=== PATIENT | male | born 1985 | race Caucasian/White ===

== ENCOUNTER 2018-03-03 11:42 | Inpatient (IN) | payer MEDICAID ==
[~2018-03-03] VITALS: Ht 167.6 cm; Wt 127.0 kg
[2018-03-03] MEDS ORDERED: NO HOME MEDS (13:20)
[2018-03-03] MEDS ORDERED: piperacillin/tazo 3.375gm/50ml 50 ML IV ONE (14:05)
[2018-03-03] MEDS ORDERED: vancomycin/NS 1 GM ADD-VANTAGE 250 ML IV ONE (14:05)
[2018-03-03] MEDS ORDERED: normal saline 1000ML IV soln IV ONE (14:05)
[2018-03-03 14:31] LABS: BASOPHILS % (AUTO) 0.1 % (0-1); EOSINOPHILS # (AUTO) 0.1 X10'3 (0-0.9); EOSINOPHILS % (AUTO) 0.9 % (0-6); HEMATOCRIT 39.9 % (42.0-52.0); HEMOGLOBIN 13.9 g/dl (14.0-17.9); LYMPHOCYTES # (AUTO) 1.3 X10'3 (1.1-4.8); LYMPHOCYTES % (AUTO) 15.5 % (21-51); MEAN CORPUSCULAR HEMOGLOBIN 29.1 PG (27.0-31.0); MEAN CORPUSCULAR HGB CONC 34.8 % (33.0-36.5); MEAN CORPUSCULAR VOLUME 83.6 FL (78-98); MEAN PLATELET VOLUME 9.4 FL (7.4-10.4); MONOCYTES # (AUTO) 0.7 X10'3 (0-0.9); MONOCYTES % (AUTO) 8.3 % (2-12); NEUTROPHILS # (AUTO) 6.5 X10'3 (1.8-7.7); NEUTROPHILS % (AUTO) 75.2 % (42-75); PLATELET COUNT 296 X10'3 (140-440); RED BLOOD COUNT 4.77 X10'6 (4.70-6.10); RED CELL DISTRIBUTION WIDTH 12.1 % (11.5-14.5); WHITE BLOOD COUNT 8.6 X10'3 (4.5-11.0)
[2018-03-03 14:47] LABS: ALANINE AMINOTRANSFERASE 35 U/L (12-78); ALBUMIN 2.6 G/DL (3.4-5.0); ALBUMIN/GLOBULIN RATIO 0.5 (1.1-1.5); ALKALINE PHOSPHATASE 61 IU/L (46-116); ANION GAP 13 (8-16); ASPARTATE AMINO TRANSFERASE 23 U/L (10-37); BILIRUBIN,TOTAL 0.7 MG/DL (0.1-1.0); BLOOD UREA NITROGEN 11 MG/DL (7-18); BUN/CREATININE RATIO 11.7 (5.4-32.0); CALCIUM 9.4 MG/DL (8.5-10.1); CHLORIDE 98 MMOL/L (99-107); CREATININE 0.94 MG/DL (0.60-1.10); GLUCOSE 332 MG/DL (70-104); POTASSIUM 4.7 MMOL/L (3.5-5.1); SODIUM 135 MMOL/L (135-145); TOTAL CARBON DIOXIDE 23.8 MMOL/L (24-32); TOTAL PROTEIN 7.6 G/DL (6.4-8.2); eGFR > 90 ML/MIN
[2018-03-03 16:07] LABS: CLARITY,URINE CLOUDY (Clear); COLOR,URINE YELLOW (Yellow); GLUCOSE, URINE >=1000 mg/dl (Neg); KETONES,URINE >=80 mg/dl (Neg); LEUKOCYTE ESTERASE ,URINE NEGATIVE (Neg); NITRITES, URINE NEGATIVE (Neg); OCCULT BLOOD,URINE TRACE-LYSED (Neg); PROTEIN,URINE TRACE mg/dl (Neg)
[2018-03-03 16:31] LABS: UA COLLECTION TYPE CLN CATCH MIDSTREAM
[2018-03-03 16:32] LABS: WBC,URINE 30-50 /HPF (0-4)
[2018-03-03 16:33] LABS: BACTERIA,URINE 1+ /HPF (Neg); RBC,URINE 0-2 /HPF (0-2); SQUAMOUS EPITHELIAL CELL,UR FEW /LPF (FEW)
[2018-03-03] MEDS ORDERED: TETanus/Pertussis (Acell)/Diphther VAC/PF (Tdap-Adult) 0.5ml syringe IM ONE (16:35)
[2018-03-03] MEDS ORDERED: magnesium hydroxide 30ml (MOM) UD suspension PO PRN (16:40)
[2018-03-03] MEDS ORDERED: glucagon, human recombinant 1mg kit SUBCUT PRN (16:40)
[2018-03-03] MEDS ORDERED: mag hydrox/Alum hydrox/simeth 30ml oral suspension PO PRN (16:40)
[2018-03-03] MEDS ORDERED: HYDROcodone/acetaminophen 5mg/325mg tablet PO PRN (16:40)
[2018-03-03] MEDS ORDERED: MESSAGE TO PHARMACY PO ONE (16:40)
[2018-03-03] MEDS ORDERED: dextrose 50%-water 50ml dispensing syringe IV PRN ×2 (16:40)
[2018-03-03] MEDS ORDERED: HYDROcodone/acetaminophen 10/325mg tab PO PRN (16:40)
[2018-03-03] MEDS ORDERED: acetaminophen 325mg tablet PO PRN ×2 (16:40)
[2018-03-03] MEDS ORDERED: dextrose ORAL solution 15 GM/59 ML bottle PO PRN ×2 (16:40)
[2018-03-03] MEDS ORDERED: ondansetron/PF 4mg/2ml inj IV PRN (16:40)
[2018-03-03 17:12] LABS: HEMOGLOBIN A1C 10.9 % (4.5-6.2)
[2018-03-03] MEDS: CefTRIAXone 2gm/D5W 50ml 50 ML IV SCH (17:26)
[2018-03-03] MEDS: normal saline 1000ml 1,000 ML IV SCH ×2 (17:26→23:39)
[2018-03-03] MEDS ORDERED: vancomycin/NS 1 GM ADD-VANTAGE 250 ML IV SCH (20:00)
[2018-03-03] MEDS ORDERED: temazepam 15mg capsule PO PRN (21:00)
[2018-03-03 21:30] VITALS: BP 131/79
[2018-03-03] MEDS: insulin glargine (Lantus) pen - multi-dose SQ SCH (23:23)
[2018-03-03] MEDS: insulin Lispro (HumaLOG) vial - multi-dose SQ SCH (23:24)
[2018-03-04] VITALS: BP 121/73
[2018-03-04 05:58] LABS: BASOPHILS % (AUTO) 0 % (0-1); EOSINOPHILS # (AUTO) 0.1 X10'3 (0-0.9); EOSINOPHILS % (AUTO) 1.6 % (0-6); HEMATOCRIT 34.7 % (42.0-52.0); HEMOGLOBIN 12.1 g/dl (14.0-17.9); LYMPHOCYTES # (AUTO) 1.7 X10'3 (1.1-4.8); LYMPHOCYTES % (AUTO) 21.3 % (21-51); MEAN CORPUSCULAR HEMOGLOBIN 29.2 PG (27.0-31.0); MEAN CORPUSCULAR VOLUME 83.4 FL (78-98); MEAN PLATELET VOLUME 8.8 FL (7.4-10.4); MONOCYTES # (AUTO) 0.8 X10'3 (0-0.9); NEUTROPHILS # (AUTO) 5.4 X10'3 (1.8-7.7); NEUTROPHILS % (AUTO) 67.1 % (42-75); PLATELET COUNT 293 X10'3 (140-440); RED BLOOD COUNT 4.16 X10'6 (4.70-6.10); RED CELL DISTRIBUTION WIDTH 11.9 % (11.5-14.5); WHITE BLOOD COUNT 8.1 X10'3 (4.5-11.0)
[2018-03-04 06:29] LABS: ANION GAP 11 (8-16); BLOOD UREA NITROGEN 10 MG/DL (7-18); BUN/CREATININE RATIO 14.7 (5.4-32.0); CALCIUM 8.8 MG/DL (8.5-10.1); CHLORIDE 103 MMOL/L (99-107); CREATININE 0.68 MG/DL (0.60-1.10); GLUCOSE 278 MG/DL (70-104); POTASSIUM 4.1 MMOL/L (3.5-5.1); SODIUM 139 MMOL/L (135-145); TOTAL CARBON DIOXIDE 25.2 MMOL/L (24-32); eGFR > 90 ML/MIN
[2018-03-04] MEDS: enoxaparin 40mg/0.4ml syringe SQ SCH (06:43)
[2018-03-04 07:00] VITALS: BP 137/74
[2018-03-04] MEDS: CefTRIAXone 2gm/D5W 50ml 50 ML IV SCH (07:42)
[2018-03-04] MEDS ORDERED: [UNRECOGNIZED DRUG - OTHER] (08:29)
[2018-03-04] MEDS ORDERED: MULT-955 PO (08:30)
[2018-03-04] MEDS: insulin Lispro (HumaLOG) vial - multi-dose SQ SCH ×4 (09:03→22:38)
[2018-03-04] MEDS: normal saline 1000ml 1,000 ML IV SCH ×2 (11:21→22:38)
[2018-03-04 12:21] VITALS: BP 124/72
[2018-03-04] MEDS ORDERED: VANCOMYCIN LEVEL IV ONE (17:30)
[2018-03-04 19:00] VITALS: BP 135/80
[2018-03-04] MEDS: insulin glargine (Lantus) pen - multi-dose SQ SCH (22:36)
[2018-03-05] VITALS (18 sets, daily range): BP systolic 112–134; BP diastolic 64–88
[2018-03-05] MEDS ORDERED: VANCOMYCIN LEVEL IV ONE ×2 (01:30→09:30)
[2018-03-05 02:05] LABS: ALBUMIN 1.9 G/DL (3.4-5.0); ANION GAP 11 (8-16); BLOOD UREA NITROGEN 8 MG/DL (7-18); CALCIUM 8.5 MG/DL (8.5-10.1); CHLORIDE 103 MMOL/L (99-107); CREATININE 0.57 MG/DL (0.60-1.10); GLUCOSE 203 MG/DL (70-104); POTASSIUM 3.6 MMOL/L (3.5-5.1); SODIUM 138 MMOL/L (135-145); TOTAL CARBON DIOXIDE 24.4 MMOL/L (24-32); VANCOMYCIN,TROUGH 8.7 UG/ML (6.0-14.0); eGFR > 90 ML/MIN
[2018-03-05 02:09] LABS: BASOPHILS % (AUTO) 0.3 % (0-1); EOSINOPHILS # (AUTO) 0.2 X10'3 (0-0.9); EOSINOPHILS % (AUTO) 2.3 % (0-6); HEMATOCRIT 34.2 % (42.0-52.0); HEMOGLOBIN 11.9 g/dl (14.0-17.9); LYMPHOCYTES # (AUTO) 2.1 X10'3 (1.1-4.8); LYMPHOCYTES % (AUTO) 27.7 % (21-51); MEAN CORPUSCULAR HEMOGLOBIN 29.3 PG (27.0-31.0); MEAN CORPUSCULAR VOLUME 83.9 FL (78-98); MEAN PLATELET VOLUME 8.6 FL (7.4-10.4); MONOCYTES # (AUTO) 0.8 X10'3 (0-0.9); MONOCYTES % (AUTO) 9.7 % (2-12); NEUTROPHILS # (AUTO) 4.6 X10'3 (1.8-7.7); PLATELET COUNT 306 X10'3 (140-440); RED BLOOD COUNT 4.07 X10'6 (4.70-6.10); RED CELL DISTRIBUTION WIDTH 12.2 % (11.5-14.5); WHITE BLOOD COUNT 7.7 X10'3 (4.5-11.0)
[2018-03-05] MEDS: enoxaparin 40mg/0.4ml syringe SQ SCH (07:06)
[2018-03-05] MEDS: CefTRIAXone 2gm/D5W 50ml 50 ML IV SCH (07:23)
[2018-03-05] MEDS: normal saline 1000ml 1,000 ML IV SCH ×2 (07:23→17:41)
[2018-03-05] MEDS: insulin Lispro (HumaLOG) vial - multi-dose SQ SCH ×4 (08:40→22:15)
[2018-03-05 09:05] LABS: PARTIAL THROMBOPLASTIN TIME 31 SECONDS (22-32); PROTHROMBIN TIME 10.7 SECONDS (9.0-12.0)
[2018-03-05] MEDS: DEXTROSE 5% IV SCH ×2 (10:00→17:41)
[2018-03-05] MEDS: WATER IV SCH ×2 (10:00→17:41)
[2018-03-05] MEDS: VANCOMYCIN IV SCH ×2 (10:00→17:41)
[2018-03-05] MEDS ORDERED: BUPIVAcaine/PF 2.5 mg/ml (0.25%) 30ml vial ONE (14:11)
[2018-03-05] MEDS ORDERED: ringers solution, lacted 1,000 ML IV SCH (15:31)
[2018-03-05] MEDS ORDERED: ondansetron/PF 4mg/2ml inj IV PRN (15:35)
[2018-03-05] MEDS ORDERED: morphine 4 MG/ML inj SYRINge IV PRN ×2 (15:35)
[2018-03-05] MEDS ORDERED: meperidine/PF 50mg/ml syringe IV PRN ×3 (15:35)
[2018-03-05] MEDS ORDERED: proCHLORperazine 10 MG/2 ml inj IV PRN (15:35)
[2018-03-05] MEDS ORDERED: fentaNYL/PF 50MCG/1 ML 2ML syringe ONE (15:37)
[2018-03-05] MEDS ORDERED: midazolam 2 mg/2 ml injection ONE (15:37)
[2018-03-05] MEDS ORDERED: LIDOcaine 2% (20mg/ml) 5ml vial ONE (16:10)
[2018-03-05] MEDS ORDERED: propofol inj 20 ML IV ONE (16:10)
[2018-03-05] MEDS: fluconazole 100mg tablet PO SCH (20:41)
[2018-03-05] MEDS: insulin glargine (Lantus) pen - multi-dose SQ SCH (22:16)
[2018-03-06] VITALS: BP 137/81
[2018-03-06] MEDS: WATER IV SCH ×3 (02:07→19:28)
[2018-03-06] MEDS: VANCOMYCIN IV SCH ×3 (02:07→19:28)
[2018-03-06] MEDS: DEXTROSE 5% IV SCH ×3 (02:07→19:28)
[2018-03-06 04:00] VITALS: BP 127/79
[2018-03-06] MEDS: normal saline 1000ml 1,000 ML IV SCH ×2 (04:38→09:03)
[2018-03-06 06:01] LABS: BASOPHILS % (AUTO) 0.3 % (0-1); EOSINOPHILS # (AUTO) 0.1 X10'3 (0-0.9); EOSINOPHILS % (AUTO) 0.7 % (0-6); HEMATOCRIT 33.5 % (42.0-52.0); HEMOGLOBIN 11.7 g/dl (14.0-17.9); LYMPHOCYTES # (AUTO) 1.8 X10'3 (1.1-4.8); LYMPHOCYTES % (AUTO) 17.1 % (21-51); MEAN CORPUSCULAR HEMOGLOBIN 29.2 PG (27.0-31.0); MEAN CORPUSCULAR VOLUME 83.5 FL (78-98); MEAN PLATELET VOLUME 8.5 FL (7.4-10.4); MONOCYTES # (AUTO) 0.6 X10'3 (0-0.9); MONOCYTES % (AUTO) 6.1 % (2-12); NEUTROPHILS % (AUTO) 75.8 % (42-75); PLATELET COUNT 338 X10'3 (140-440); RED BLOOD COUNT 4.01 X10'6 (4.70-6.10); RED CELL DISTRIBUTION WIDTH 12.2 % (11.5-14.5); WHITE BLOOD COUNT 10.6 X10'3 (4.5-11.0)
[2018-03-06 06:38] LABS: ANION GAP 11 (8-16); BLOOD UREA NITROGEN 8 MG/DL (7-18); BUN/CREATININE RATIO 11.9 (5.4-32.0); CALCIUM 8.7 MG/DL (8.5-10.1); CHLORIDE 101 MMOL/L (99-107); CREATININE 0.67 MG/DL (0.60-1.10); GLUCOSE 287 MG/DL (70-104); SODIUM 136 MMOL/L (135-145); TOTAL CARBON DIOXIDE 23.7 MMOL/L (24-32); eGFR > 90 ML/MIN
[2018-03-06 07:13] VITALS: BP 118/65
[2018-03-06] MEDS: fluconazole 100mg tablet PO SCH ×2 (07:24→19:29)
[2018-03-06] MEDS: CefTRIAXone 2gm/D5W 50ml 50 ML IV SCH (07:24)
[2018-03-06] MEDS: enoxaparin 40mg/0.4ml syringe SQ SCH (07:25)
[2018-03-06] MEDS: insulin Lispro (HumaLOG) vial - multi-dose SQ SCH ×4 (09:03→21:32)
[2018-03-06 11:00] VITALS: BP 124/68
[2018-03-06] MEDS ORDERED: VANCOMYCIN LEVEL IV ONE (17:30)
[2018-03-06] MEDS: lactobacillus rhamnosus 10,000 MMU CELLS/CAPSULE PO SCH (19:29)
[2018-03-06 20:00] VITALS: BP 118/74
[2018-03-06] MEDS: insulin glargine (Lantus) pen - multi-dose SQ SCH (21:35)
[2018-03-07] VITALS: BP 120/65
[2018-03-07] MEDS: VANCOMYCIN IV SCH ×3 (01:17→19:07)
[2018-03-07] MEDS: DEXTROSE 5% IV SCH ×3 (01:17→19:07)
[2018-03-07] MEDS: WATER IV SCH ×3 (01:17→19:07)
[2018-03-07] MEDS: normal saline 1000ml 1,000 ML IV SCH ×3 (04:26→18:18)
[2018-03-07 05:59] LABS: BASOPHILS % (AUTO) 0.5 % (0-1); EOSINOPHILS # (AUTO) 0.2 X10'3 (0-0.9); EOSINOPHILS % (AUTO) 2.4 % (0-6); HEMATOCRIT 33.8 % (42.0-52.0); LYMPHOCYTES # (AUTO) 2.6 X10'3 (1.1-4.8); MEAN CORPUSCULAR HEMOGLOBIN 29.4 PG (27.0-31.0); MEAN CORPUSCULAR HGB CONC 35.4 % (33.0-36.5); MEAN CORPUSCULAR VOLUME 82.9 FL (78-98); MEAN PLATELET VOLUME 8.4 FL (7.4-10.4); MONOCYTES # (AUTO) 0.6 X10'3 (0-0.9); MONOCYTES % (AUTO) 6.7 % (2-12); NEUTROPHILS % (AUTO) 63.4 % (42-75); PLATELET COUNT 320 X10'3 (140-440); RED BLOOD COUNT 4.08 X10'6 (4.70-6.10); RED CELL DISTRIBUTION WIDTH 12.4 % (11.5-14.5); WHITE BLOOD COUNT 9.5 X10'3 (4.5-11.0)
[2018-03-07 06:16] LABS: ALBUMIN 1.9 G/DL (3.4-5.0); ANION GAP 7 (8-16); BLOOD UREA NITROGEN 8 MG/DL (7-18); BUN/CREATININE RATIO 10.8 (5.4-32.0); CALCIUM 8.4 MG/DL (8.5-10.1); CHLORIDE 104 MMOL/L (99-107); CREATININE 0.74 MG/DL (0.60-1.10); GLUCOSE 232 MG/DL (70-104); POTASSIUM 3.9 MMOL/L (3.5-5.1); SODIUM 140 MMOL/L (135-145); TOTAL CARBON DIOXIDE 28.7 MMOL/L (24-32); eGFR > 90 ML/MIN
[2018-03-07 07:29] VITALS: BP 132/84
[2018-03-07] MEDS: insulin Lispro (HumaLOG) vial - multi-dose SQ SCH ×4 (08:32→21:43)
[2018-03-07] MEDS: CefTRIAXone 2gm/D5W 50ml 50 ML IV SCH (08:33)
[2018-03-07] MEDS: fluconazole 100mg tablet PO SCH ×2 (08:35→19:15)
[2018-03-07] MEDS: lactobacillus rhamnosus 10,000 MMU CELLS/CAPSULE PO SCH ×2 (08:35→19:15)
[2018-03-07] MEDS: enoxaparin 40mg/0.4ml syringe SQ SCH (08:36)
[2018-03-07 11:00] VITALS: BP 146/75
[2018-03-07 20:00] VITALS: BP 128/77
[2018-03-07] MEDS: insulin glargine (Lantus) pen - multi-dose SQ SCH (21:42)
[2018-03-08] VITALS: BP 140/80
[2018-03-08] MEDS: WATER IV SCH (01:45)
[2018-03-08] MEDS: VANCOMYCIN IV SCH (01:45)
[2018-03-08] MEDS: DEXTROSE 5% IV SCH (01:45)
[2018-03-08 06:16] LABS: BASOPHILS % (AUTO) 0.6 % (0-1); EOSINOPHILS # (AUTO) 0.2 X10'3 (0-0.9); EOSINOPHILS % (AUTO) 2.4 % (0-6); HEMATOCRIT 33.9 % (42.0-52.0); HEMOGLOBIN 11.8 g/dl (14.0-17.9); LYMPHOCYTES # (AUTO) 2.3 X10'3 (1.1-4.8); LYMPHOCYTES % (AUTO) 25.3 % (21-51); MEAN CORPUSCULAR HEMOGLOBIN 29.3 PG (27.0-31.0); MEAN CORPUSCULAR HGB CONC 34.8 % (33.0-36.5); MEAN CORPUSCULAR VOLUME 84.3 FL (78-98); MEAN PLATELET VOLUME 8.6 FL (7.4-10.4); MONOCYTES # (AUTO) 0.6 X10'3 (0-0.9); MONOCYTES % (AUTO) 6.5 % (2-12); NEUTROPHILS # (AUTO) 5.8 X10'3 (1.8-7.7); NEUTROPHILS % (AUTO) 65.2 % (42-75); PLATELET COUNT 311 X10'3 (140-440); RED BLOOD COUNT 4.02 X10'6 (4.70-6.10); WHITE BLOOD COUNT 8.9 X10'3 (4.5-11.0)
[2018-03-08 06:36] LABS: ALBUMIN 1.8 G/DL (3.4-5.0); ANION GAP 9 (8-16); BLOOD UREA NITROGEN 8 MG/DL (7-18); BUN/CREATININE RATIO 11.4 (5.4-32.0); CALCIUM 8.7 MG/DL (8.5-10.1); CHLORIDE 103 MMOL/L (99-107); GLUCOSE 263 MG/DL (70-104); POTASSIUM 3.9 MMOL/L (3.5-5.1); SODIUM 138 MMOL/L (135-145); TOTAL CARBON DIOXIDE 26.3 MMOL/L (24-32); eGFR > 90 ML/MIN
[2018-03-08] MEDS: normal saline 1000ml 1,000 ML IV SCH ×2 (07:26→16:38)
[2018-03-08] MEDS: CefTRIAXone 2gm/D5W 50ml 50 ML IV SCH (07:26)
[2018-03-08] MEDS: lactobacillus rhamnosus 10,000 MMU CELLS/CAPSULE PO SCH ×2 (07:27→19:04)
[2018-03-08] MEDS: fluconazole 100mg tablet PO SCH ×2 (07:27→19:04)
[2018-03-08] MEDS: enoxaparin 40mg/0.4ml syringe SQ SCH (07:28)
[2018-03-08 08:00] VITALS: BP 146/88
[2018-03-08] MEDS: insulin Lispro (HumaLOG) vial - multi-dose SQ SCH ×3 (09:13→19:00)
[2018-03-08 11:00] VITALS: BP 128/68
[2018-03-08] MEDS: vancomycin inj 2,000 MG in normal saline 500ml IV soln 500 ML IV SCH ×2 (11:26→18:54)
[2018-03-08 20:00] VITALS: BP 136/82
[2018-03-08] MEDS: insulin glargine (Lantus) pen - multi-dose SQ SCH (20:48)
[2018-03-09] VITALS: BP 129/75
[2018-03-09] MEDS: vancomycin inj 2,000 MG in normal saline 500ml IV soln 500 ML IV SCH ×4 (02:03→19:54)
[2018-03-09 07:30] VITALS: BP 134/85
[2018-03-09] MEDS: lactobacillus rhamnosus 10,000 MMU CELLS/CAPSULE PO SCH ×2 (07:34→19:53)
[2018-03-09] MEDS: enoxaparin 40mg/0.4ml syringe SQ SCH (07:34)
[2018-03-09] MEDS: CefTRIAXone 2gm/D5W 50ml 50 ML IV SCH (07:34)
[2018-03-09] MEDS: fluconazole 100mg tablet PO SCH ×2 (07:35→19:53)
[2018-03-09] MEDS: insulin Lispro (HumaLOG) vial - multi-dose SQ SCH ×3 (08:42→19:45)
[2018-03-09 12:00] VITALS: BP 138/86
[2018-03-09 20:00] VITALS: BP 121/79
[2018-03-09] MEDS: insulin glargine (Lantus) pen - multi-dose SQ SCH (22:08)
[2018-03-09 23:00] VITALS: BP 127/80
[2018-03-10] MEDS: vancomycin inj 2,000 MG in normal saline 500ml IV soln 500 ML IV SCH ×2 (02:45→10:48)
[2018-03-10 06:31] LABS: ANION GAP 8 (8-16); BLOOD UREA NITROGEN 8 MG/DL (7-18); BUN/CREATININE RATIO 10.7 (5.4-32.0); CALCIUM 8.5 MG/DL (8.5-10.1); CHLORIDE 105 MMOL/L (99-107); CREATININE 0.75 MG/DL (0.60-1.10); GLUCOSE 159 MG/DL (70-104); POTASSIUM 3.8 MMOL/L (3.5-5.1); SODIUM 141 MMOL/L (135-145); TOTAL CARBON DIOXIDE 28.2 MMOL/L (24-32); eGFR > 90 ML/MIN
[2018-03-10 07:30] VITALS: BP 132/92
[2018-03-10] MEDS: lactobacillus rhamnosus 10,000 MMU CELLS/CAPSULE PO SCH ×2 (07:41→20:17)
[2018-03-10] MEDS: enoxaparin 40mg/0.4ml syringe SQ SCH (07:41)
[2018-03-10] MEDS: fluconazole 100mg tablet PO SCH ×2 (07:41→20:17)
[2018-03-10] MEDS: CefTRIAXone 2gm/D5W 50ml 50 ML IV SCH (07:41)
[2018-03-10] MEDS: insulin Lispro (HumaLOG) vial - multi-dose SQ SCH ×3 (08:29→18:56)
[2018-03-10 11:40] VITALS: BP 124/83
[2018-03-10] MEDS: levoFLOXACIN 750MG TABLET PO SCH (12:57)
[2018-03-10] MEDS: metroNIDAZOLE 500mg tablet PO SCH ×2 (12:58→20:17)
[2018-03-10 18:00] VITALS: BP 134/84
[2018-03-10] MEDS: insulin glargine (Lantus) pen - multi-dose SQ SCH (21:22)
[2018-03-10 23:30] VITALS: BP 120/61
[2018-03-11 07:00] VITALS: BP 134/84
[2018-03-11] MEDS: fluconazole 100mg tablet PO SCH (08:26)
[2018-03-11] MEDS: metroNIDAZOLE 500mg tablet PO SCH (08:26)
[2018-03-11] MEDS: enoxaparin 40mg/0.4ml syringe SQ SCH (08:26)
[2018-03-11] MEDS: lactobacillus rhamnosus 10,000 MMU CELLS/CAPSULE PO SCH (08:26)
[2018-03-11] MEDS: insulin Lispro (HumaLOG) vial - multi-dose SQ SCH ×2 (08:34→12:51)
[2018-03-11 11:19] VITALS: BP 139/94
[2018-03-11] MEDS: levoFLOXACIN 750MG TABLET PO SCH (12:01)
[2018-03-11] MEDS ORDERED: LANTUS SQ (14:34)
[2018-03-11] MEDS ORDERED: FLUC100T9 PO (14:34)
[2018-03-11] MEDS ORDERED: LEVO750T46 PO (14:34)
[2018-03-11] MEDS ORDERED: METR500T4 PO (14:34)
[2018-03-11] MEDS ORDERED: LACT1CAP26 PO (14:34)
[2018-03-11] MEDS ORDERED: INSU100V11 SQ (14:34)
[2018-03-11] MEDS ORDERED: BLOO-384 METER (14:34)
== END 2018-03-11 17:34 | disposition home health service (06) | DRG 314 ==
LOC: ER 11:43 → ED HOLD 16:38 → EDBEDREQ 20:54 → MED 3N 21:20 → CMPBEDREQ 22:09
PROVIDERS: ADMIT Hospitalist; ATTEND Family Medicine
PROC: 0Y6P0Z0 Detachment at Right 1st Toe, Complete, Open Approach (ICD-10-PCS; principal; 2018-03-05 15:30)
DX: E11.69 Type 2 diabetes mellitus with other specified complication (principal); M86.171 Other acute osteomyelitis, right ankle and foot; L03.115 Cellulitis of right lower limb; E11.52 Type 2 diabetes mellitus with diabetic peripheral angiopathy with gangrene; E11.65 Type 2 diabetes mellitus with hyperglycemia; Z68.42 Body mass index [BMI] 45.0-49.9, adult; B37.49 Other urogenital candidiasis; E66.9 Obesity, unspecified; L02.611 Cutaneous abscess of right foot; Z79.4 Long term (current) use of insulin; Z79.82 Long term (current) use of aspirin; Z83.3 Family history of diabetes mellitus; Z88.8 Allergy status to other drugs, medicaments and biological substances
CPT/HCPCS: 36415; 73620; 80048; 80053; 80202; 81001; 82948; 83036; 83605; 85025; 85610; 85651; 85730; 87040; 87070; 87075; 87076; 87077; 87088; 87185; 87186; 90715; 93005; 93922; 93926; 96365; 97110; 97116; 97162; 97530; 99285; A6223; A6446; A6449; A7000; J0696; J1650; J1815; J2001; J2250; J2543; J2704; J3010; J3370; J3490; J7030; J7060; J7120

== ENCOUNTER 2018-03-24 09:44 | Day surgery (SDC) | payer MEDICAID ==
[~2018-03-24 09:44] MED LIST: BLOO-384 METER; FLUC100T9 PO; INSU100V11 SQ; LACT1CAP26 PO; LANTUS SQ; LEVO750T46 PO; METR500T4 PO; MULT-955 PO
[2018-03-24] MEDS ORDERED: LIDOcaine 2% 5ml jelly ONE (10:30)
== END 2018-03-24 12:32 | disposition home or self-care (01) ==
LOC: WOUND CARE 09:44
PROVIDERS: ATTEND Surgery
DX: T81.89XA Other complications of procedures, not elsewhere classified, initial encounter (principal); E11.621 Type 2 diabetes mellitus with foot ulcer; L97.514 Non-pressure chronic ulcer of other part of right foot with necrosis of bone; L97.522 Non-pressure chronic ulcer of other part of left foot with fat layer exposed; E11.65 Type 2 diabetes mellitus with hyperglycemia; E11.40 Type 2 diabetes mellitus with diabetic neuropathy, unspecified; E11.69 Type 2 diabetes mellitus with other specified complication; M86.8X7 Other osteomyelitis, ankle and foot; E11.52 Type 2 diabetes mellitus with diabetic peripheral angiopathy with gangrene; E66.9 Obesity, unspecified; Z68.42 Body mass index [BMI] 45.0-49.9, adult; Z79.82 Long term (current) use of aspirin; Z79.4 Long term (current) use of insulin; Y83.8 Other surgical procedures as the cause of abnormal reaction of the patient, or of later complication, without mention of misadventure at the time of the procedure
CPT/HCPCS: 11042; 36416; 82948; A6021; A6206; A6209; A6446

== ENCOUNTER 2018-03-31 08:57 | Day surgery (SDC) | payer MEDICAID ==
[~2018-03-31 08:57] MED LIST changes: -FLUC100T9 PO; -LACT1CAP26 PO; -LEVO750T46 PO; -METR500T4 PO
[2018-03-31] MEDS ORDERED: LIDOcaine 2% 5ml jelly ONE (11:13)
== END 2018-03-31 12:02 | disposition home or self-care (01) ==
LOC: WOUND CARE 08:57
PROVIDERS: ATTEND Surgery
DX: T81.89XD Other complications of procedures, not elsewhere classified, subsequent encounter (principal); E11.621 Type 2 diabetes mellitus with foot ulcer; L97.514 Non-pressure chronic ulcer of other part of right foot with necrosis of bone; L97.522 Non-pressure chronic ulcer of other part of left foot with fat layer exposed; E11.65 Type 2 diabetes mellitus with hyperglycemia; E11.40 Type 2 diabetes mellitus with diabetic neuropathy, unspecified; E11.69 Type 2 diabetes mellitus with other specified complication; M86.8X7 Other osteomyelitis, ankle and foot; E11.52 Type 2 diabetes mellitus with diabetic peripheral angiopathy with gangrene; E66.9 Obesity, unspecified; Z68.42 Body mass index [BMI] 45.0-49.9, adult; Z79.82 Long term (current) use of aspirin; Z79.4 Long term (current) use of insulin; Y83.8 Other surgical procedures as the cause of abnormal reaction of the patient, or of later complication, without mention of misadventure at the time of the procedure
CPT/HCPCS: 11042; 36416; 82948; A6021; A6206; A6209; A6446

== ENCOUNTER 2018-04-07 10:00 | Day surgery (SDC) | payer MEDICAID ==
[2018-04-07] MEDS ORDERED: LIDOcaine 2% 5ml jelly ONE (11:22)
== END 2018-04-07 12:41 | disposition home or self-care (01) ==
LOC: WOUND CARE 10:00
PROVIDERS: ATTEND Surgery
DX: T81.89XD Other complications of procedures, not elsewhere classified, subsequent encounter (principal); E11.621 Type 2 diabetes mellitus with foot ulcer; L97.514 Non-pressure chronic ulcer of other part of right foot with necrosis of bone; L97.522 Non-pressure chronic ulcer of other part of left foot with fat layer exposed; E11.65 Type 2 diabetes mellitus with hyperglycemia; E11.40 Type 2 diabetes mellitus with diabetic neuropathy, unspecified; E11.69 Type 2 diabetes mellitus with other specified complication; M86.8X7 Other osteomyelitis, ankle and foot; E11.52 Type 2 diabetes mellitus with diabetic peripheral angiopathy with gangrene; E66.9 Obesity, unspecified; Z68.42 Body mass index [BMI] 45.0-49.9, adult; Z79.82 Long term (current) use of aspirin; Z79.4 Long term (current) use of insulin; Y83.8 Other surgical procedures as the cause of abnormal reaction of the patient, or of later complication, without mention of misadventure at the time of the procedure
CPT/HCPCS: 11042; 36416; 82948; A6021; A6206; A6209; A6266; A6446

== ENCOUNTER 2018-04-10 09:57 | Outpatient (CLI) | payer MEDICAID | END 2018-04-10 10:58 | disposition home or self-care (01) | LOC: WOUND CARE 09:57 → EDSTATUS 10:00 → WOUND CARE 10:58 | PROVIDERS: ATTEND Surgery | DX: T81.89XD Other complications of procedures, not elsewhere classified, subsequent encounter (principal); E11.621 Type 2 diabetes mellitus with foot ulcer; L97.514 Non-pressure chronic ulcer of other part of right foot with necrosis of bone; L97.522 Non-pressure chronic ulcer of other part of left foot with fat layer exposed; E11.65 Type 2 diabetes mellitus with hyperglycemia; E11.40 Type 2 diabetes mellitus with diabetic neuropathy, unspecified; E11.69 Type 2 diabetes mellitus with other specified complication; M86.8X7 Other osteomyelitis, ankle and foot; E11.52 Type 2 diabetes mellitus with diabetic peripheral angiopathy with gangrene; E66.9 Obesity, unspecified; Z68.42 Body mass index [BMI] 45.0-49.9, adult; Z79.82 Long term (current) use of aspirin; Z79.4 Long term (current) use of insulin; Y83.8 Other surgical procedures as the cause of abnormal reaction of the patient, or of later complication, without mention of misadventure at the time of the procedure | CPT/HCPCS: 36416; 82948; 99215; A6021; A6206; A6266; A6446 ==

== ENCOUNTER 2018-04-14 09:39 | Day surgery (SDC) | payer MEDICAID ==
[2018-04-14] MEDS ORDERED: LIDOcaine 2% 5ml jelly ONE (10:19)
== END 2018-04-14 11:12 | disposition home or self-care (01) ==
LOC: WOUND CARE 09:39
PROVIDERS: ATTEND Surgery
DX: T81.89XD Other complications of procedures, not elsewhere classified, subsequent encounter (principal); E11.621 Type 2 diabetes mellitus with foot ulcer; L97.514 Non-pressure chronic ulcer of other part of right foot with necrosis of bone; L97.522 Non-pressure chronic ulcer of other part of left foot with fat layer exposed; E11.65 Type 2 diabetes mellitus with hyperglycemia; E11.40 Type 2 diabetes mellitus with diabetic neuropathy, unspecified; E11.69 Type 2 diabetes mellitus with other specified complication; M86.8X7 Other osteomyelitis, ankle and foot; E11.52 Type 2 diabetes mellitus with diabetic peripheral angiopathy with gangrene; I96 Gangrene, not elsewhere classified; E66.9 Obesity, unspecified; Z68.42 Body mass index [BMI] 45.0-49.9, adult; Z79.82 Long term (current) use of aspirin; Z79.4 Long term (current) use of insulin; Y83.8 Other surgical procedures as the cause of abnormal reaction of the patient, or of later complication, without mention of misadventure at the time of the procedure
CPT/HCPCS: 11042; 36416; 82948; A6021; A6206

== ENCOUNTER 2018-04-24 09:51 | Day surgery (SDC) | payer MEDICAID ==
[2018-04-24] MEDS ORDERED: LIDOcaine 2% 5ml jelly ONE (10:09)
== END 2018-04-24 11:34 | disposition home or self-care (01) ==
LOC: WOUND CARE 09:51
PROVIDERS: ATTEND Surgery
DX: T81.89XD Other complications of procedures, not elsewhere classified, subsequent encounter (principal); E11.621 Type 2 diabetes mellitus with foot ulcer; L97.514 Non-pressure chronic ulcer of other part of right foot with necrosis of bone; L97.522 Non-pressure chronic ulcer of other part of left foot with fat layer exposed; E11.65 Type 2 diabetes mellitus with hyperglycemia; E11.40 Type 2 diabetes mellitus with diabetic neuropathy, unspecified; E11.69 Type 2 diabetes mellitus with other specified complication; M86.8X7 Other osteomyelitis, ankle and foot; E11.52 Type 2 diabetes mellitus with diabetic peripheral angiopathy with gangrene; I96 Gangrene, not elsewhere classified; E66.9 Obesity, unspecified; Z68.42 Body mass index [BMI] 45.0-49.9, adult; Z79.82 Long term (current) use of aspirin; Z79.4 Long term (current) use of insulin; Y83.8 Other surgical procedures as the cause of abnormal reaction of the patient, or of later complication, without mention of misadventure at the time of the procedure
CPT/HCPCS: 11042; 36416; 82948; 87070; 87075; 87077; 87102; 87176; 87186; A6021; A6206

== ENCOUNTER 2018-05-01 09:15 | Day surgery (SDC) | payer MEDICAID ==
[2018-05-01] MEDS ORDERED: LIDOcaine 2% 5ml jelly ONE (10:46)
== END 2018-05-01 11:45 | disposition home or self-care (01) ==
LOC: WOUND CARE 09:15
PROVIDERS: ATTEND Surgery
DX: T81.89XD Other complications of procedures, not elsewhere classified, subsequent encounter (principal); E11.621 Type 2 diabetes mellitus with foot ulcer; L97.514 Non-pressure chronic ulcer of other part of right foot with necrosis of bone; L97.522 Non-pressure chronic ulcer of other part of left foot with fat layer exposed; E11.65 Type 2 diabetes mellitus with hyperglycemia; E11.40 Type 2 diabetes mellitus with diabetic neuropathy, unspecified; E11.69 Type 2 diabetes mellitus with other specified complication; M86.8X7 Other osteomyelitis, ankle and foot; E11.52 Type 2 diabetes mellitus with diabetic peripheral angiopathy with gangrene; I96 Gangrene, not elsewhere classified; E66.9 Obesity, unspecified; Z68.42 Body mass index [BMI] 45.0-49.9, adult; Z79.82 Long term (current) use of aspirin; Z79.4 Long term (current) use of insulin; Y83.8 Other surgical procedures as the cause of abnormal reaction of the patient, or of later complication, without mention of misadventure at the time of the procedure
CPT/HCPCS: 11042; 15275; 36416; 82948; A6021; A6209; A6222; A6446; Q4131; A6250

== ENCOUNTER 2018-05-09 09:13 | Day surgery (SDC) | payer MEDICAID ==
[2018-05-09] MEDS ORDERED: LIDOcaine 2% 5ml jelly ONE (10:39)
[2018-05-09] MEDS ORDERED: LEVO500T2 PO (12:00)
[2018-05-09] MEDS ORDERED: CLIN300C13 (12:02)
== END 2018-05-09 11:42 | disposition home or self-care (01) ==
LOC: WOUND CARE 09:13
PROVIDERS: ATTEND Surgery
DX: T81.89XD Other complications of procedures, not elsewhere classified, subsequent encounter (principal); E11.621 Type 2 diabetes mellitus with foot ulcer; L97.514 Non-pressure chronic ulcer of other part of right foot with necrosis of bone; L97.522 Non-pressure chronic ulcer of other part of left foot with fat layer exposed; E11.65 Type 2 diabetes mellitus with hyperglycemia; E11.40 Type 2 diabetes mellitus with diabetic neuropathy, unspecified; E11.69 Type 2 diabetes mellitus with other specified complication; M86.8X7 Other osteomyelitis, ankle and foot; E11.52 Type 2 diabetes mellitus with diabetic peripheral angiopathy with gangrene; I96 Gangrene, not elsewhere classified; E66.9 Obesity, unspecified; Z68.42 Body mass index [BMI] 45.0-49.9, adult; Z79.82 Long term (current) use of aspirin; Z79.4 Long term (current) use of insulin; Y83.8 Other surgical procedures as the cause of abnormal reaction of the patient, or of later complication, without mention of misadventure at the time of the procedure
CPT/HCPCS: 11042; 36416; 82948; A6021; A6206; A6446

== ENCOUNTER 2018-05-15 09:54 | Day surgery (SDC) | payer MEDICAID ==
[~2018-05-15 09:54] MED LIST changes: +CLIN300C13; +LEVO500T2 PO
[2018-05-15] MEDS ORDERED: LIDOcaine 2% 5ml jelly ONE (10:58)
[2018-05-15] MEDS ORDERED: mupirocin 2% ointment 22GM ONE (11:22)
[2018-05-15] MEDS ORDERED: CLIN300C85 PO (15:55)
== END 2018-05-15 11:34 | disposition home or self-care (01) ==
LOC: WOUND CARE 09:54
PROVIDERS: ATTEND Surgery
DX: T81.89XD Other complications of procedures, not elsewhere classified, subsequent encounter (principal); E11.621 Type 2 diabetes mellitus with foot ulcer; L97.514 Non-pressure chronic ulcer of other part of right foot with necrosis of bone; L97.522 Non-pressure chronic ulcer of other part of left foot with fat layer exposed; E11.65 Type 2 diabetes mellitus with hyperglycemia; E11.40 Type 2 diabetes mellitus with diabetic neuropathy, unspecified; E11.69 Type 2 diabetes mellitus with other specified complication; M86.8X7 Other osteomyelitis, ankle and foot; E11.52 Type 2 diabetes mellitus with diabetic peripheral angiopathy with gangrene; I96 Gangrene, not elsewhere classified; E66.9 Obesity, unspecified; Z68.42 Body mass index [BMI] 45.0-49.9, adult; Z79.82 Long term (current) use of aspirin; Z79.4 Long term (current) use of insulin; Y83.8 Other surgical procedures as the cause of abnormal reaction of the patient, or of later complication, without mention of misadventure at the time of the procedure
CPT/HCPCS: 11042; 36416; 82948; A6021; A6206; A6212

== ENCOUNTER 2018-05-22 09:47 | Day surgery (SDC) | payer MEDICAID ==
[~2018-05-22 09:47] MED LIST changes: +CLIN300C85 PO
[2018-05-22] MEDS ORDERED: LIDOcaine 2% 5ml jelly ONE (10:10)
== END 2018-05-22 12:10 | disposition home or self-care (01) ==
LOC: WOUND CARE 09:47
PROVIDERS: ATTEND Surgery
DX: T81.89XD Other complications of procedures, not elsewhere classified, subsequent encounter (principal); E11.621 Type 2 diabetes mellitus with foot ulcer; L97.514 Non-pressure chronic ulcer of other part of right foot with necrosis of bone; L97.522 Non-pressure chronic ulcer of other part of left foot with fat layer exposed; E11.65 Type 2 diabetes mellitus with hyperglycemia; E11.40 Type 2 diabetes mellitus with diabetic neuropathy, unspecified; E11.69 Type 2 diabetes mellitus with other specified complication; M86.8X7 Other osteomyelitis, ankle and foot; E11.52 Type 2 diabetes mellitus with diabetic peripheral angiopathy with gangrene; I96 Gangrene, not elsewhere classified; Z68.42 Body mass index [BMI] 45.0-49.9, adult; Z79.82 Long term (current) use of aspirin; Z79.4 Long term (current) use of insulin; Y83.8 Other surgical procedures as the cause of abnormal reaction of the patient, or of later complication, without mention of misadventure at the time of the procedure
CPT/HCPCS: 11042; 36416; 82948; A6206; A6209

== ENCOUNTER 2018-05-27 10:01 | Day surgery (SDC) | payer MEDICAID ==
[2018-05-27] MEDS ORDERED: LIDOcaine 2% 5ml jelly ONE (11:43)
== END 2018-05-27 12:14 | disposition home or self-care (01) ==
LOC: WOUND CARE 10:01
PROVIDERS: ATTEND Surgery
DX: E11.621 Type 2 diabetes mellitus with foot ulcer (principal); L97.522 Non-pressure chronic ulcer of other part of left foot with fat layer exposed; E11.65 Type 2 diabetes mellitus with hyperglycemia; E11.40 Type 2 diabetes mellitus with diabetic neuropathy, unspecified; E11.69 Type 2 diabetes mellitus with other specified complication; M86.8X7 Other osteomyelitis, ankle and foot; E11.52 Type 2 diabetes mellitus with diabetic peripheral angiopathy with gangrene; I96 Gangrene, not elsewhere classified; Z68.42 Body mass index [BMI] 45.0-49.9, adult; Z79.82 Long term (current) use of aspirin; Z79.4 Long term (current) use of insulin; Y83.8 Other surgical procedures as the cause of abnormal reaction of the patient, or of later complication, without mention of misadventure at the time of the procedure
CPT/HCPCS: 11042; 36416; 82948; A6021; A6206; A6209

== ENCOUNTER 2018-06-04 09:45 | Day surgery (SDC) | payer MEDICAID ==
[~2018-06-04 09:45] MED LIST changes: -CLIN300C13; -LEVO500T2 PO
[2018-06-04] MEDS ORDERED: LIDOcaine 2% 5ml jelly ONE (10:56)
[2018-06-04] MEDS ORDERED: Silvasorb gel 45gm tube TP ONE (11:05)
== END 2018-06-04 10:57 | disposition home or self-care (01) ==
LOC: WOUND CARE 09:45
PROVIDERS: ATTEND Surgery
DX: T81.89XD Other complications of procedures, not elsewhere classified, subsequent encounter (principal); E11.621 Type 2 diabetes mellitus with foot ulcer; L97.522 Non-pressure chronic ulcer of other part of left foot with fat layer exposed; L97.512 Non-pressure chronic ulcer of other part of right foot with fat layer exposed; E11.65 Type 2 diabetes mellitus with hyperglycemia; E11.40 Type 2 diabetes mellitus with diabetic neuropathy, unspecified; E11.69 Type 2 diabetes mellitus with other specified complication; M86.8X7 Other osteomyelitis, ankle and foot; E11.52 Type 2 diabetes mellitus with diabetic peripheral angiopathy with gangrene; I96 Gangrene, not elsewhere classified; Z68.42 Body mass index [BMI] 45.0-49.9, adult; Z79.82 Long term (current) use of aspirin; Z79.4 Long term (current) use of insulin; Y83.8 Other surgical procedures as the cause of abnormal reaction of the patient, or of later complication, without mention of misadventure at the time of the procedure
CPT/HCPCS: 11042; 36416; 82948; 97597; A6021; A6209; A6212

== ENCOUNTER 2018-06-11 09:56 | Day surgery (SDC) | payer MEDICAID ==
[~2018-06-11 09:56] MED LIST changes: -CLIN300C85 PO
== END 2018-06-11 11:44 | disposition home or self-care (01) ==
LOC: WOUND CARE 09:56
PROVIDERS: ATTEND Surgery
DX: T81.89XD Other complications of procedures, not elsewhere classified, subsequent encounter (principal); E11.621 Type 2 diabetes mellitus with foot ulcer; L97.522 Non-pressure chronic ulcer of other part of left foot with fat layer exposed; L97.512 Non-pressure chronic ulcer of other part of right foot with fat layer exposed; E11.65 Type 2 diabetes mellitus with hyperglycemia; E11.40 Type 2 diabetes mellitus with diabetic neuropathy, unspecified; E11.69 Type 2 diabetes mellitus with other specified complication; M86.8X7 Other osteomyelitis, ankle and foot; E11.52 Type 2 diabetes mellitus with diabetic peripheral angiopathy with gangrene; I96 Gangrene, not elsewhere classified; Z68.42 Body mass index [BMI] 45.0-49.9, adult; Z79.82 Long term (current) use of aspirin; Z79.4 Long term (current) use of insulin; Y83.8 Other surgical procedures as the cause of abnormal reaction of the patient, or of later complication, without mention of misadventure at the time of the procedure
CPT/HCPCS: 11042; 36416; 82948; A6021; A6206; A6209

== ENCOUNTER 2018-06-18 09:53 | Day surgery (SDC) | payer MEDICAID | END 2018-06-18 12:00 | disposition home or self-care (01) | LOC: WOUND CARE 09:53 | PROVIDERS: ATTEND Surgery | DX: T81.89XD Other complications of procedures, not elsewhere classified, subsequent encounter (principal); E11.621 Type 2 diabetes mellitus with foot ulcer; L97.522 Non-pressure chronic ulcer of other part of left foot with fat layer exposed; L97.512 Non-pressure chronic ulcer of other part of right foot with fat layer exposed; E11.65 Type 2 diabetes mellitus with hyperglycemia; E11.40 Type 2 diabetes mellitus with diabetic neuropathy, unspecified; E11.69 Type 2 diabetes mellitus with other specified complication; M86.8X7 Other osteomyelitis, ankle and foot; E11.52 Type 2 diabetes mellitus with diabetic peripheral angiopathy with gangrene; I96 Gangrene, not elsewhere classified; Z68.42 Body mass index [BMI] 45.0-49.9, adult; Z79.82 Long term (current) use of aspirin; Z79.4 Long term (current) use of insulin; Y83.8 Other surgical procedures as the cause of abnormal reaction of the patient, or of later complication, without mention of misadventure at the time of the procedure | CPT/HCPCS: 36416; 82948; 97597; A6021; A6206; A6209 ==

== ENCOUNTER 2018-06-25 09:57 | Day surgery (SDC) | payer MEDICAID | END 2018-06-25 12:10 | disposition home or self-care (01) | LOC: WOUND CARE 09:57 | PROVIDERS: ATTEND Surgery | DX: T81.89XD Other complications of procedures, not elsewhere classified, subsequent encounter (principal); E11.621 Type 2 diabetes mellitus with foot ulcer; L97.522 Non-pressure chronic ulcer of other part of left foot with fat layer exposed; L97.512 Non-pressure chronic ulcer of other part of right foot with fat layer exposed; E11.65 Type 2 diabetes mellitus with hyperglycemia; E11.40 Type 2 diabetes mellitus with diabetic neuropathy, unspecified; E11.69 Type 2 diabetes mellitus with other specified complication; M86.8X7 Other osteomyelitis, ankle and foot; E11.52 Type 2 diabetes mellitus with diabetic peripheral angiopathy with gangrene; I96 Gangrene, not elsewhere classified; Z68.42 Body mass index [BMI] 45.0-49.9, adult; Z79.82 Long term (current) use of aspirin; Z79.4 Long term (current) use of insulin; Y83.8 Other surgical procedures as the cause of abnormal reaction of the patient, or of later complication, without mention of misadventure at the time of the procedure | CPT/HCPCS: 15275; 36416; 82948; A6209; A6446; Q4131; A6250 ==

== ENCOUNTER 2018-07-02 09:58 | Day surgery (SDC) | payer MEDICAID ==
[2018-07-02] MEDS: LIDOcaine 2% 5ml jelly ONE (11:28)
== END 2018-07-02 11:56 | disposition home or self-care (01) ==
LOC: WOUND CARE 09:58
PROVIDERS: ATTEND Surgery
DX: T81.89XD Other complications of procedures, not elsewhere classified, subsequent encounter (principal); E11.621 Type 2 diabetes mellitus with foot ulcer; L97.522 Non-pressure chronic ulcer of other part of left foot with fat layer exposed; L97.512 Non-pressure chronic ulcer of other part of right foot with fat layer exposed; E11.65 Type 2 diabetes mellitus with hyperglycemia; E11.40 Type 2 diabetes mellitus with diabetic neuropathy, unspecified; E11.69 Type 2 diabetes mellitus with other specified complication; M86.8X7 Other osteomyelitis, ankle and foot; E11.52 Type 2 diabetes mellitus with diabetic peripheral angiopathy with gangrene; I96 Gangrene, not elsewhere classified; Z68.42 Body mass index [BMI] 45.0-49.9, adult; Z79.82 Long term (current) use of aspirin; Z79.4 Long term (current) use of insulin; Y83.8 Other surgical procedures as the cause of abnormal reaction of the patient, or of later complication, without mention of misadventure at the time of the procedure
CPT/HCPCS: 36416; 82948; 97597; A6021; A6206; A6209

== ENCOUNTER 2018-07-10 09:55 | Day surgery (SDC) | payer MEDICAID ==
[2018-07-10] MEDS ORDERED: LIDOcaine 2% 5ml jelly ONE (11:45)
[2018-07-21] MEDS ORDERED: ST.300CA PO (15:45)
[2018-07-26] MEDS ORDERED: CIPR-230 PO (10:47)
== END 2018-07-10 12:48 | disposition home or self-care (01) ==
LOC: WOUND CARE 09:55
PROVIDERS: ATTEND Surgery
DX: E11.621 Type 2 diabetes mellitus with foot ulcer (principal); L97.522 Non-pressure chronic ulcer of other part of left foot with fat layer exposed; L97.512 Non-pressure chronic ulcer of other part of right foot with fat layer exposed; E11.65 Type 2 diabetes mellitus with hyperglycemia; E11.40 Type 2 diabetes mellitus with diabetic neuropathy, unspecified; E11.69 Type 2 diabetes mellitus with other specified complication; E11.52 Type 2 diabetes mellitus with diabetic peripheral angiopathy with gangrene; Z68.42 Body mass index [BMI] 45.0-49.9, adult; Z79.82 Long term (current) use of aspirin; Z79.4 Long term (current) use of insulin
CPT/HCPCS: 15275; 36416; 82948; A6209; A6222; Q4131; A6250

== ENCOUNTER 2018-08-04 10:03 | Outpatient (CLI) | payer MEDICAID ==
[~2018-08-04 10:03] MED LIST changes: +CIPR-230 PO; +ST.300CA PO
[2018-08-04] MEDS ORDERED: LIDOcaine/PRILOcaine 5gm cream TP ONE (10:32)
== END 2018-08-04 10:59 | disposition home or self-care (01) ==
LOC: WOUND CARE 10:03
PROVIDERS: ATTEND Surgery
DX: T81.89XD Other complications of procedures, not elsewhere classified, subsequent encounter (principal); E11.621 Type 2 diabetes mellitus with foot ulcer; L97.522 Non-pressure chronic ulcer of other part of left foot with fat layer exposed; E11.65 Type 2 diabetes mellitus with hyperglycemia; E11.40 Type 2 diabetes mellitus with diabetic neuropathy, unspecified; E11.69 Type 2 diabetes mellitus with other specified complication; E11.52 Type 2 diabetes mellitus with diabetic peripheral angiopathy with gangrene; Z68.42 Body mass index [BMI] 45.0-49.9, adult; Z79.82 Long term (current) use of aspirin; Z79.4 Long term (current) use of insulin; Y83.8 Other surgical procedures as the cause of abnormal reaction of the patient, or of later complication, without mention of misadventure at the time of the procedure
CPT/HCPCS: 36416; 82948; 99211; A6209; 99214

== ENCOUNTER 2018-08-07 10:15 | Day surgery (SDC) | payer MEDICAID ==
[2018-08-07] MEDS ORDERED: LIDOcaine/PRILOcaine 5gm cream TP ONE (12:17)
== END 2018-08-07 13:30 | disposition home or self-care (01) ==
LOC: WOUND CARE 10:15
PROVIDERS: ATTEND Surgery
DX: T81.89XD Other complications of procedures, not elsewhere classified, subsequent encounter (principal); E11.621 Type 2 diabetes mellitus with foot ulcer; L97.522 Non-pressure chronic ulcer of other part of left foot with fat layer exposed; E11.65 Type 2 diabetes mellitus with hyperglycemia; E11.40 Type 2 diabetes mellitus with diabetic neuropathy, unspecified; E11.69 Type 2 diabetes mellitus with other specified complication; E11.52 Type 2 diabetes mellitus with diabetic peripheral angiopathy with gangrene; Z68.42 Body mass index [BMI] 45.0-49.9, adult; Z79.82 Long term (current) use of aspirin; Z79.4 Long term (current) use of insulin; Y83.8 Other surgical procedures as the cause of abnormal reaction of the patient, or of later complication, without mention of misadventure at the time of the procedure
CPT/HCPCS: 11042; 36416; 82948; A6021; A6206; A6209; A6446

== ENCOUNTER 2018-08-11 09:50 | Day surgery (SDC) | payer MEDICAID ==
[2018-08-11] MEDS ORDERED: LIDOcaine/PRILOcaine 5gm cream TP ONE (11:10)
== END 2018-08-11 12:15 | disposition home or self-care (01) ==
LOC: WOUND CARE 09:50
PROVIDERS: ATTEND Surgery
DX: T81.89XD Other complications of procedures, not elsewhere classified, subsequent encounter (principal); E11.621 Type 2 diabetes mellitus with foot ulcer; L97.522 Non-pressure chronic ulcer of other part of left foot with fat layer exposed; E11.65 Type 2 diabetes mellitus with hyperglycemia; E11.40 Type 2 diabetes mellitus with diabetic neuropathy, unspecified; E11.69 Type 2 diabetes mellitus with other specified complication; E11.52 Type 2 diabetes mellitus with diabetic peripheral angiopathy with gangrene; Z68.42 Body mass index [BMI] 45.0-49.9, adult; Z79.82 Long term (current) use of aspirin; Z79.4 Long term (current) use of insulin; Y83.8 Other surgical procedures as the cause of abnormal reaction of the patient, or of later complication, without mention of misadventure at the time of the procedure
CPT/HCPCS: 15275; 36416; 82948; A6209; A6222; A6446; Q4131; A6250

== ENCOUNTER 2018-08-14 10:06 | Outpatient (CLI) | payer MEDICAID | END 2018-08-14 11:56 | disposition home or self-care (01) | LOC: WOUND CARE 10:06 | PROVIDERS: ATTEND Surgery | DX: T81.89XD Other complications of procedures, not elsewhere classified, subsequent encounter (principal); E11.621 Type 2 diabetes mellitus with foot ulcer; L97.522 Non-pressure chronic ulcer of other part of left foot with fat layer exposed; E11.65 Type 2 diabetes mellitus with hyperglycemia; E11.40 Type 2 diabetes mellitus with diabetic neuropathy, unspecified; E11.69 Type 2 diabetes mellitus with other specified complication; E11.52 Type 2 diabetes mellitus with diabetic peripheral angiopathy with gangrene; Z68.42 Body mass index [BMI] 45.0-49.9, adult; Z79.82 Long term (current) use of aspirin; Z79.4 Long term (current) use of insulin; Y83.8 Other surgical procedures as the cause of abnormal reaction of the patient, or of later complication, without mention of misadventure at the time of the procedure | CPT/HCPCS: 36416; 82948; 99211; A6209; A6446 ==

== ENCOUNTER 2018-08-18 09:55 | Outpatient (CLI) | payer MEDICAID | END 2018-08-18 12:30 | disposition home or self-care (01) | LOC: WOUND CARE 09:55 → EDSTATUS 10:00 → WOUND CARE 12:30 | PROVIDERS: ATTEND Surgery | DX: T81.89XD Other complications of procedures, not elsewhere classified, subsequent encounter (principal); E11.621 Type 2 diabetes mellitus with foot ulcer; L97.522 Non-pressure chronic ulcer of other part of left foot with fat layer exposed; E11.65 Type 2 diabetes mellitus with hyperglycemia; E11.40 Type 2 diabetes mellitus with diabetic neuropathy, unspecified; E11.69 Type 2 diabetes mellitus with other specified complication; E11.52 Type 2 diabetes mellitus with diabetic peripheral angiopathy with gangrene; Z68.42 Body mass index [BMI] 45.0-49.9, adult; Z79.82 Long term (current) use of aspirin; Z79.4 Long term (current) use of insulin; Y83.8 Other surgical procedures as the cause of abnormal reaction of the patient, or of later complication, without mention of misadventure at the time of the procedure | CPT/HCPCS: 36416; 82948; 99215; A6209; A6222; A6446 ==

== ENCOUNTER 2018-08-25 10:02 | Day surgery (SDC) | payer MEDICAID ==
[2018-08-25] MEDS ORDERED: LIDOcaine/PRILOcaine 5gm cream TP ONE (12:27)
== END 2018-08-25 13:13 | disposition home or self-care (01) ==
LOC: WOUND CARE 10:02
PROVIDERS: ATTEND Surgery
DX: T81.89XD Other complications of procedures, not elsewhere classified, subsequent encounter (principal); E11.621 Type 2 diabetes mellitus with foot ulcer; L97.522 Non-pressure chronic ulcer of other part of left foot with fat layer exposed; E11.65 Type 2 diabetes mellitus with hyperglycemia; E11.40 Type 2 diabetes mellitus with diabetic neuropathy, unspecified; E11.69 Type 2 diabetes mellitus with other specified complication; E11.52 Type 2 diabetes mellitus with diabetic peripheral angiopathy with gangrene; Z68.42 Body mass index [BMI] 45.0-49.9, adult; Z79.82 Long term (current) use of aspirin; Z79.4 Long term (current) use of insulin; Y83.8 Other surgical procedures as the cause of abnormal reaction of the patient, or of later complication, without mention of misadventure at the time of the procedure
CPT/HCPCS: 15275; 36416; 82948; A6209; A6446; Q4106; A6250

== ENCOUNTER 2018-09-01 10:06 | Outpatient (CLI) | payer MEDICAID ==
[~2018-09-01 10:06] MED LIST changes: -CIPR-230 PO
== END 2018-09-01 13:10 | disposition home or self-care (01) ==
LOC: WOUND CARE 10:06
PROVIDERS: ATTEND Surgery
DX: T81.89XD Other complications of procedures, not elsewhere classified, subsequent encounter (principal); E11.621 Type 2 diabetes mellitus with foot ulcer; L97.522 Non-pressure chronic ulcer of other part of left foot with fat layer exposed; E11.65 Type 2 diabetes mellitus with hyperglycemia; E11.40 Type 2 diabetes mellitus with diabetic neuropathy, unspecified; E11.69 Type 2 diabetes mellitus with other specified complication; E11.52 Type 2 diabetes mellitus with diabetic peripheral angiopathy with gangrene; I96 Gangrene, not elsewhere classified; Z68.42 Body mass index [BMI] 45.0-49.9, adult; Z79.82 Long term (current) use of aspirin; Z79.4 Long term (current) use of insulin; Y83.8 Other surgical procedures as the cause of abnormal reaction of the patient, or of later complication, without mention of misadventure at the time of the procedure
CPT/HCPCS: 36416; 82948; 99215; A6206; A6222

== ENCOUNTER 2018-09-08 09:45 | Day surgery (SDC) | payer MEDICAID ==
[2018-09-08] MEDS ORDERED: LIDOcaine/PRILOcaine 5gm cream TP ONE (11:18)
== END 2018-09-08 13:08 | disposition home or self-care (01) ==
LOC: WOUND CARE 09:45
PROVIDERS: ATTEND Surgery
DX: T81.89XD Other complications of procedures, not elsewhere classified, subsequent encounter (principal); E11.621 Type 2 diabetes mellitus with foot ulcer; L97.522 Non-pressure chronic ulcer of other part of left foot with fat layer exposed; E11.65 Type 2 diabetes mellitus with hyperglycemia; E11.40 Type 2 diabetes mellitus with diabetic neuropathy, unspecified; E11.69 Type 2 diabetes mellitus with other specified complication; E11.52 Type 2 diabetes mellitus with diabetic peripheral angiopathy with gangrene; I96 Gangrene, not elsewhere classified; Z68.42 Body mass index [BMI] 45.0-49.9, adult; Z79.82 Long term (current) use of aspirin; Z79.4 Long term (current) use of insulin; Y83.8 Other surgical procedures as the cause of abnormal reaction of the patient, or of later complication, without mention of misadventure at the time of the procedure
CPT/HCPCS: 11042; 36416; 82948; A6021; A6206; A6209

== ENCOUNTER 2018-09-15 09:50 | Day surgery (SDC) | payer MEDICAID | END 2018-09-15 12:44 | disposition home or self-care (01) | LOC: WOUND CARE 09:50 | PROVIDERS: ATTEND Surgery | DX: T81.89XD Other complications of procedures, not elsewhere classified, subsequent encounter (principal); E11.621 Type 2 diabetes mellitus with foot ulcer; L97.522 Non-pressure chronic ulcer of other part of left foot with fat layer exposed; E11.65 Type 2 diabetes mellitus with hyperglycemia; E11.40 Type 2 diabetes mellitus with diabetic neuropathy, unspecified; E11.69 Type 2 diabetes mellitus with other specified complication; E11.52 Type 2 diabetes mellitus with diabetic peripheral angiopathy with gangrene; I96 Gangrene, not elsewhere classified; Z68.42 Body mass index [BMI] 45.0-49.9, adult; Z79.82 Long term (current) use of aspirin; Z79.4 Long term (current) use of insulin; Y83.8 Other surgical procedures as the cause of abnormal reaction of the patient, or of later complication, without mention of misadventure at the time of the procedure | CPT/HCPCS: 11042; 82948; 87070; 87075; 87077; 87102; 87176; 87186; A6021; A6266 ==

== ENCOUNTER 2018-09-18 10:07 | Day surgery (SDC) | payer MEDICAID | END 2018-09-18 13:04 | disposition home or self-care (01) | LOC: WOUND CARE 10:07 | PROVIDERS: ATTEND Surgery | DX: T81.89XD Other complications of procedures, not elsewhere classified, subsequent encounter (principal); E11.621 Type 2 diabetes mellitus with foot ulcer; L97.522 Non-pressure chronic ulcer of other part of left foot with fat layer exposed; E11.65 Type 2 diabetes mellitus with hyperglycemia; E11.40 Type 2 diabetes mellitus with diabetic neuropathy, unspecified; E11.69 Type 2 diabetes mellitus with other specified complication; E11.52 Type 2 diabetes mellitus with diabetic peripheral angiopathy with gangrene; I96 Gangrene, not elsewhere classified; Z68.42 Body mass index [BMI] 45.0-49.9, adult; Z79.82 Long term (current) use of aspirin; Z79.4 Long term (current) use of insulin; Y83.8 Other surgical procedures as the cause of abnormal reaction of the patient, or of later complication, without mention of misadventure at the time of the procedure | CPT/HCPCS: 11042; 36416; 82948; A6266 ==

== ENCOUNTER 2018-09-22 09:55 | Day surgery (SDC) | payer MEDICAID ==
[2018-09-22] MEDS ORDERED: LIDOcaine/PRILOcaine 5gm cream TP ONE (11:41)
[2018-09-22] MEDS ORDERED: LEVO750T21 PO (15:50)
== END 2018-09-22 12:50 | disposition home or self-care (01) ==
LOC: WOUND CARE 09:55
PROVIDERS: ATTEND Surgery
DX: T81.89XD Other complications of procedures, not elsewhere classified, subsequent encounter (principal); E11.621 Type 2 diabetes mellitus with foot ulcer; L97.522 Non-pressure chronic ulcer of other part of left foot with fat layer exposed; E11.65 Type 2 diabetes mellitus with hyperglycemia; E11.40 Type 2 diabetes mellitus with diabetic neuropathy, unspecified; E11.69 Type 2 diabetes mellitus with other specified complication; E11.52 Type 2 diabetes mellitus with diabetic peripheral angiopathy with gangrene; I96 Gangrene, not elsewhere classified; Z68.42 Body mass index [BMI] 45.0-49.9, adult; Z79.82 Long term (current) use of aspirin; Z79.4 Long term (current) use of insulin; Y83.8 Other surgical procedures as the cause of abnormal reaction of the patient, or of later complication, without mention of misadventure at the time of the procedure
CPT/HCPCS: 15275; 36416; 82948; A6209; A6222; Q4106; A6250

== ENCOUNTER 2018-09-29 09:55 | Outpatient (CLI) | payer MEDICAID ==
[~2018-09-29 09:55] MED LIST changes: +LEVO750T21 PO
[2018-09-29] MEDS ORDERED: LIDOcaine/PRILOcaine 5gm cream TP ONE (11:36)
== END 2018-09-29 12:26 | disposition home or self-care (01) ==
LOC: WOUND CARE 09:55 → EDSTATUS 10:00 → WOUND CARE 12:26
PROVIDERS: ATTEND Surgery
DX: T81.89XD Other complications of procedures, not elsewhere classified, subsequent encounter (principal); E11.621 Type 2 diabetes mellitus with foot ulcer; L97.522 Non-pressure chronic ulcer of other part of left foot with fat layer exposed; E11.65 Type 2 diabetes mellitus with hyperglycemia; E11.40 Type 2 diabetes mellitus with diabetic neuropathy, unspecified; E11.69 Type 2 diabetes mellitus with other specified complication; E11.52 Type 2 diabetes mellitus with diabetic peripheral angiopathy with gangrene; I96 Gangrene, not elsewhere classified; Z68.42 Body mass index [BMI] 45.0-49.9, adult; Z79.82 Long term (current) use of aspirin; Z79.4 Long term (current) use of insulin; Y83.8 Other surgical procedures as the cause of abnormal reaction of the patient, or of later complication, without mention of misadventure at the time of the procedure
CPT/HCPCS: 36416; 82948; 99215; A6209; A6446

== ENCOUNTER 2018-10-06 09:56 | Day surgery (SDC) | payer MEDICAID ==
[2018-10-06] MEDS ORDERED: LIDOcaine/PRILOcaine 5gm cream TP ONE (10:56)
== END 2018-10-06 11:14 | disposition home or self-care (01) ==
LOC: WOUND CARE 09:56
PROVIDERS: ATTEND Surgery
DX: T81.89XD Other complications of procedures, not elsewhere classified, subsequent encounter (principal); E11.621 Type 2 diabetes mellitus with foot ulcer; L97.522 Non-pressure chronic ulcer of other part of left foot with fat layer exposed; E11.65 Type 2 diabetes mellitus with hyperglycemia; E11.40 Type 2 diabetes mellitus with diabetic neuropathy, unspecified; E11.69 Type 2 diabetes mellitus with other specified complication; E11.52 Type 2 diabetes mellitus with diabetic peripheral angiopathy with gangrene; I96 Gangrene, not elsewhere classified; Z68.42 Body mass index [BMI] 45.0-49.9, adult; Z79.82 Long term (current) use of aspirin; Z79.4 Long term (current) use of insulin; Y83.8 Other surgical procedures as the cause of abnormal reaction of the patient, or of later complication, without mention of misadventure at the time of the procedure
CPT/HCPCS: 11042; 36416; 82948; A6209; A6222; A6021; A6446

== ENCOUNTER 2018-10-15 10:00 | Day surgery (SDC) | payer MEDICAID | END 2018-10-15 11:05 | disposition home or self-care (01) | LOC: WOUND CARE 10:00 | PROVIDERS: ATTEND Surgery | DX: T81.89XD Other complications of procedures, not elsewhere classified, subsequent encounter (principal); E11.621 Type 2 diabetes mellitus with foot ulcer; L97.522 Non-pressure chronic ulcer of other part of left foot with fat layer exposed; E11.65 Type 2 diabetes mellitus with hyperglycemia; E11.40 Type 2 diabetes mellitus with diabetic neuropathy, unspecified; E11.69 Type 2 diabetes mellitus with other specified complication; E11.52 Type 2 diabetes mellitus with diabetic peripheral angiopathy with gangrene; I96 Gangrene, not elsewhere classified; Z68.42 Body mass index [BMI] 45.0-49.9, adult; Z79.82 Long term (current) use of aspirin; Z79.4 Long term (current) use of insulin; Y83.8 Other surgical procedures as the cause of abnormal reaction of the patient, or of later complication, without mention of misadventure at the time of the procedure | CPT/HCPCS: 15275; 36416; 82948; A6209; A6222; Q4133; A6250; A6446 ==

== ENCOUNTER 2018-10-23 09:53 | Day surgery (SDC) | payer MEDICAID ==
[2018-10-23] MEDS ORDERED: LIDOcaine/PRILOcaine 5gm cream TP ONE (11:23)
[2018-10-23] MEDS ORDERED: nystatin/triamcinolone cream 15gm TP ONE (12:03)
== END 2018-10-23 12:34 | disposition home or self-care (01) ==
LOC: WOUND CARE 09:53
PROVIDERS: ATTEND Surgery
DX: T81.89XD Other complications of procedures, not elsewhere classified, subsequent encounter (principal); E11.621 Type 2 diabetes mellitus with foot ulcer; L97.522 Non-pressure chronic ulcer of other part of left foot with fat layer exposed; E11.65 Type 2 diabetes mellitus with hyperglycemia; E11.40 Type 2 diabetes mellitus with diabetic neuropathy, unspecified; E11.69 Type 2 diabetes mellitus with other specified complication; E11.52 Type 2 diabetes mellitus with diabetic peripheral angiopathy with gangrene; I96 Gangrene, not elsewhere classified; Z68.42 Body mass index [BMI] 45.0-49.9, adult; Z79.82 Long term (current) use of aspirin; Z79.4 Long term (current) use of insulin; Y83.8 Other surgical procedures as the cause of abnormal reaction of the patient, or of later complication, without mention of misadventure at the time of the procedure
CPT/HCPCS: 99215; A6021; A6196; A6206; A6446

== ENCOUNTER 2018-10-30 09:56 | Day surgery (SDC) | payer MEDICAID ==
[2018-10-30] MEDS ORDERED: nystatin/triamcinolone cream 15gm TP ONE (11:57)
[2018-10-30] MEDS ORDERED: RIFA300C4 (15:27)
== END 2018-10-30 12:13 | disposition home or self-care (01) ==
LOC: WOUND CARE 09:56
PROVIDERS: ATTEND Surgery
DX: T81.89XD Other complications of procedures, not elsewhere classified, subsequent encounter (principal); E11.621 Type 2 diabetes mellitus with foot ulcer; L97.522 Non-pressure chronic ulcer of other part of left foot with fat layer exposed; E11.65 Type 2 diabetes mellitus with hyperglycemia; E11.40 Type 2 diabetes mellitus with diabetic neuropathy, unspecified; E11.69 Type 2 diabetes mellitus with other specified complication; E11.52 Type 2 diabetes mellitus with diabetic peripheral angiopathy with gangrene; I96 Gangrene, not elsewhere classified; Z68.42 Body mass index [BMI] 45.0-49.9, adult; Z79.82 Long term (current) use of aspirin; Z79.4 Long term (current) use of insulin; Y83.8 Other surgical procedures as the cause of abnormal reaction of the patient, or of later complication, without mention of misadventure at the time of the procedure
CPT/HCPCS: 15275; 36416; 82948; A6209; A6222; Q4133; A6250; A6446

== ENCOUNTER 2018-11-03 10:00 | Outpatient (CLI) | payer MEDICAID ==
[~2018-11-03 10:00] MED LIST changes: +RIFA300C4
== END 2018-11-03 10:35 | disposition home or self-care (01) ==
LOC: WOUND CARE 10:00 → EDSTATUS 10:00 → WOUND CARE 10:35
PROVIDERS: ATTEND Surgery
DX: T81.89XD Other complications of procedures, not elsewhere classified, subsequent encounter (principal); E11.621 Type 2 diabetes mellitus with foot ulcer; L97.522 Non-pressure chronic ulcer of other part of left foot with fat layer exposed; E11.65 Type 2 diabetes mellitus with hyperglycemia; E11.40 Type 2 diabetes mellitus with diabetic neuropathy, unspecified; E11.69 Type 2 diabetes mellitus with other specified complication; E11.52 Type 2 diabetes mellitus with diabetic peripheral angiopathy with gangrene; I96 Gangrene, not elsewhere classified; Z68.42 Body mass index [BMI] 45.0-49.9, adult; Z79.82 Long term (current) use of aspirin; Z79.4 Long term (current) use of insulin; Y83.8 Other surgical procedures as the cause of abnormal reaction of the patient, or of later complication, without mention of misadventure at the time of the procedure
CPT/HCPCS: 36416; 82948; 99211; A6209; A6222

== ENCOUNTER 2018-11-12 09:44 | Day surgery (SDC) | payer MEDICAID | END 2018-11-12 12:11 | disposition home or self-care (01) | LOC: WOUND CARE 09:44 | PROVIDERS: ATTEND Surgery | DX: T81.89XD Other complications of procedures, not elsewhere classified, subsequent encounter (principal); E11.621 Type 2 diabetes mellitus with foot ulcer; L97.522 Non-pressure chronic ulcer of other part of left foot with fat layer exposed; E11.65 Type 2 diabetes mellitus with hyperglycemia; E11.40 Type 2 diabetes mellitus with diabetic neuropathy, unspecified; E11.69 Type 2 diabetes mellitus with other specified complication; E11.52 Type 2 diabetes mellitus with diabetic peripheral angiopathy with gangrene; I96 Gangrene, not elsewhere classified; Z68.42 Body mass index [BMI] 45.0-49.9, adult; Z79.82 Long term (current) use of aspirin; Z79.4 Long term (current) use of insulin; Y83.8 Other surgical procedures as the cause of abnormal reaction of the patient, or of later complication, without mention of misadventure at the time of the procedure | CPT/HCPCS: 15275; 36416; 82948; A6209; A6222; Q4106; A6250; A6446 ==

== ENCOUNTER 2018-11-20 10:06 | Outpatient (CLI) | payer MEDICAID ==
[2018-11-20] MEDS ORDERED: LIDOcaine 2% 5ml jelly MM ONE (15:30)
== END 2018-11-20 12:07 | disposition home or self-care (01) ==
LOC: WOUND CARE 10:06
PROVIDERS: ATTEND Surgery
DX: T81.89XD Other complications of procedures, not elsewhere classified, subsequent encounter (principal); E11.621 Type 2 diabetes mellitus with foot ulcer; L97.522 Non-pressure chronic ulcer of other part of left foot with fat layer exposed; E11.65 Type 2 diabetes mellitus with hyperglycemia; E11.40 Type 2 diabetes mellitus with diabetic neuropathy, unspecified; E11.69 Type 2 diabetes mellitus with other specified complication; E11.52 Type 2 diabetes mellitus with diabetic peripheral angiopathy with gangrene; I96 Gangrene, not elsewhere classified; Z68.42 Body mass index [BMI] 45.0-49.9, adult; Z79.82 Long term (current) use of aspirin; Z79.4 Long term (current) use of insulin; Y83.8 Other surgical procedures as the cause of abnormal reaction of the patient, or of later complication, without mention of misadventure at the time of the procedure
CPT/HCPCS: 36416; 82948; G0463; A6206; A6446

== ENCOUNTER 2018-11-27 09:47 | Outpatient (CLI) | payer MEDICAID ==
--- NOTE | 2018-11-27 10:30 | NUR ---
Patient ambulated independently from [facility] accompanied by his mother and was admitted to outpatient wound care for physician visit with Francois Aj MD. Placed in contact isolation precautions per hospital policy. Dressing removed, wound cleansed. Patient assessed for changes in conditions, medications and medical history. 1015 - Dr. Aj at bedside accompanied by RN. Wound assessed by MD. Plan of care discussed with patient. Dressings placed per MD orders. Patient instructed on the signs and symptoms of infection and to call the Wound Center if any occur or to go to the ED if we are closed: Increased pain in wound Increase in drainage from the wound Redness in the skin surrounding the wound Bleeding from the wound Temperature of 101 or greater Patient instructed that the weight of their body puts a large amount of pressure on their wounds. This pressure keeps the new tissue from growing and inhibits new blood vessels from forming. Explained that, if they continue to bear weight on a body part that has a wound, the time it takes to heal the wound increases, the wound may get worse or the wound may not heal at all. Patient verbalized understanding of all discharge instructions and plan of care and ambulated independently out to [facility] accompanied by his mother in stable condition with no sign or symptom of distress at time of discharge.
== END 2018-11-27 11:11 | disposition home or self-care (01) ==
LOC: WOUND CARE 09:47 → EDSTATUS 10:00 → WOUND CARE 11:11
PROVIDERS: ATTEND Surgery
DX: T81.89XD Other complications of procedures, not elsewhere classified, subsequent encounter (principal); E11.621 Type 2 diabetes mellitus with foot ulcer; L97.522 Non-pressure chronic ulcer of other part of left foot with fat layer exposed; E11.65 Type 2 diabetes mellitus with hyperglycemia; E11.40 Type 2 diabetes mellitus with diabetic neuropathy, unspecified; E11.69 Type 2 diabetes mellitus with other specified complication; E11.52 Type 2 diabetes mellitus with diabetic peripheral angiopathy with gangrene; I96 Gangrene, not elsewhere classified; Z68.42 Body mass index [BMI] 45.0-49.9, adult; Z79.82 Long term (current) use of aspirin; Z79.4 Long term (current) use of insulin; Y83.8 Other surgical procedures as the cause of abnormal reaction of the patient, or of later complication, without mention of misadventure at the time of the procedure
CPT/HCPCS: 36416; 82948; A6209; G0463; A6021; A6206; A6446

== ENCOUNTER 2018-12-04 10:05 | Day surgery (SDC) | payer MEDICAID ==
[~2018-12-04 10:05] MED LIST changes: -LEVO750T21 PO
[2018-12-04] MEDS ORDERED: LIDOcaine/PRILOcaine 5gm cream TP ONE (11:25)
--- NOTE | 2018-12-04 14:21 | NUR ---
Patient ambulated independently from [facility] and was admitted to outpatient wound care for physician visit. Dressing removed, wound cleansed and Emla applied per order. Patient assessed for changes in conditions, medications and medical history. Dr. Aj at bedside accompanied by RN. Wound assessed, time out performed by MD/RN. Wound debrided as detailed in the physician progress/procedure note. Plan of care discussed with patient. Dressings placed per MD orders. Patient instructed on the signs and symptoms of infection and to call the Wound Center if any occur or to go to the ED if we are closed: Increased pain in wound Increase in drainage from the wound Redness in the skin surrounding the wound Bleeding from the wound Temperature of 101 or greater Patient instructed that elevated blood sugars delay healing of the wound and can cause further complications including but not limited to amputation of toes or feet. Patient instructed that the weight of their body puts a large amount of pressure on their wounds. This pressure keeps the new tissue from growing and inhibits new blood vessels from forming. Explained that, if they continue to bear weight on a body part that has a wound, the time it takes to heal the wound increases, the wound may get worse or the wound may not heal at all. Patient verbalized understanding of all discharge instructions and plan of care and ambulated independently out to [facility] in stable condition with no sign or symptom of distress at time of discharge. Addendum: 12/04/18 at 1423 by Yun Witt RN Amended: Links added.
== END 2018-12-04 12:25 | disposition home or self-care (01) ==
LOC: WOUND CARE 10:05
PROVIDERS: ATTEND Surgery
DX: T81.89XD Other complications of procedures, not elsewhere classified, subsequent encounter (principal); E11.621 Type 2 diabetes mellitus with foot ulcer; L97.522 Non-pressure chronic ulcer of other part of left foot with fat layer exposed; E11.65 Type 2 diabetes mellitus with hyperglycemia; E11.40 Type 2 diabetes mellitus with diabetic neuropathy, unspecified; E11.69 Type 2 diabetes mellitus with other specified complication; M86.8X8 Other osteomyelitis, other site; E11.52 Type 2 diabetes mellitus with diabetic peripheral angiopathy with gangrene; I96 Gangrene, not elsewhere classified; Z68.42 Body mass index [BMI] 45.0-49.9, adult; Z79.82 Long term (current) use of aspirin; Z79.4 Long term (current) use of insulin; Y83.8 Other surgical procedures as the cause of abnormal reaction of the patient, or of later complication, without mention of misadventure at the time of the procedure
CPT/HCPCS: 36416; 82948; 97597; A6209; A6021; A6206; A6446

== ENCOUNTER 2018-12-11 09:47 | Outpatient (CLI) | payer MEDICAID ==
[2018-12-11] MEDS ORDERED: LIDOcaine/PRILOcaine 5gm cream TP ONE (10:24)
--- NOTE | 2018-12-11 11:30 | NUR ---
Patient ambulated independently from [facility] and was admitted to outpatient wound care for physician visit with Francois Aj MD. Placed in contact isolation precautions per hospital policy. Dressing removed, wound cleansed and Emla cream applied per order. Patient assessed for changes in conditions, medications and medical history. 1030 - blood glucose 122. Patient instructed that elevated blood sugars delay healing of the wound and can cause further complications including but not limited to amputation of toes or feet. 1050 - Dr. Aj at bedside accompanied by RN. Wound assessed, time out performed by MD/RN. Wound debrided and procedure performed as detailed in the physician progress/procedure note. Plan of care discussed with patient. Dressings placed per MD orders. Patient instructed on the signs and symptoms of infection and to call the Wound Center if any occur or to go to the ED if we are closed: Increased pain in wound Increase in drainage from the wound Redness in the skin surrounding the wound Bleeding from the wound Temperature of 101 or greater Patient instructed that the weight of their body puts a large amount of pressure on their wounds. This pressure keeps the new tissue from growing and inhibits new blood vessels from forming. Explained that, if they continue to bear weight on a body part that has a wound, the time it takes to heal the wound increases, the wound may get worse or the wound may not heal at all. Patient verbalized understanding of all discharge instructions and plan of care and ambulated independently out to [facility] in stable condition with no sign or symptom of distress at time of discharge.
== END 2018-12-11 11:17 | disposition home or self-care (01) ==
LOC: WOUND CARE 09:47 → EDSTATUS 10:00 → WOUND CARE 11:17
PROVIDERS: ATTEND Surgery
DX: T81.89XD Other complications of procedures, not elsewhere classified, subsequent encounter (principal); E11.621 Type 2 diabetes mellitus with foot ulcer; L97.522 Non-pressure chronic ulcer of other part of left foot with fat layer exposed; E11.65 Type 2 diabetes mellitus with hyperglycemia; E11.40 Type 2 diabetes mellitus with diabetic neuropathy, unspecified; E11.69 Type 2 diabetes mellitus with other specified complication; M86.8X8 Other osteomyelitis, other site; E11.52 Type 2 diabetes mellitus with diabetic peripheral angiopathy with gangrene; I96 Gangrene, not elsewhere classified; Z68.42 Body mass index [BMI] 45.0-49.9, adult; Z79.82 Long term (current) use of aspirin; Z79.4 Long term (current) use of insulin; Y83.8 Other surgical procedures as the cause of abnormal reaction of the patient, or of later complication, without mention of misadventure at the time of the procedure
CPT/HCPCS: 15275; 36416; 82948; A6209; A6222; Q4133; A6250; A6446

== ENCOUNTER 2018-12-18 09:57 | Outpatient (CLI) | payer MEDICAID ==
[~2018-12-18 09:57] MED LIST changes: -RIFA300C4
[2018-12-18] MEDS ORDERED: hydrocortisone 1% cream 28gm TP ONE (11:12)
--- NOTE | 2018-12-18 15:31 | NUR ---
1000 Patient ambulated safely into [facility]. Patient admitted to outpatient wound care clinic for follow-up visit with physician. Patient placed in isolation per isolation protocol. Dressing removed, wound cleansed. Patient assessed for changes in conditions, medications and medical history. Patient showed no s/s of distress at time of assessment. 1100 at bedside accompanied by RN. Wounds assessed, as detailed in the physician progress/procedure note. Plan of care discussed with patient. Wound appears closed and was not probed. Patient instructed on the signs and symptoms of infection and to call the Wound Center if any occur or to go to the ED if we are closed: Increased pain in wound Increase in drainage from the wound Redness in the skin surrounding the wound Bleeding from the wound Temperature of 101 or greater Patient instructed that the weight of their body puts a large amount of pressure on their wounds. This pressure keeps the new tissue from growing and inhibits new blood vessels from forming. Explained that, if they continue to bear weight on a body part that has a wound, the time it takes to heal the wound increases, the wound may get worse or the wound may not heal at all. Patient verbalized understanding of all discharge instructions and plan of care. Patient ambulated independently out to [facility] and is in stable condition with no sign or symptom of distress at time of discharge.
== END 2018-12-18 11:25 | disposition home or self-care (01) ==
LOC: WOUND CARE 09:57 → EDSTATUS 10:00 → WOUND CARE 11:25
PROVIDERS: ATTEND Surgery
DX: T81.89XD Other complications of procedures, not elsewhere classified, subsequent encounter (principal); E11.621 Type 2 diabetes mellitus with foot ulcer; L97.522 Non-pressure chronic ulcer of other part of left foot with fat layer exposed; E11.65 Type 2 diabetes mellitus with hyperglycemia; E11.40 Type 2 diabetes mellitus with diabetic neuropathy, unspecified; E11.69 Type 2 diabetes mellitus with other specified complication; M86.8X8 Other osteomyelitis, other site; E11.52 Type 2 diabetes mellitus with diabetic peripheral angiopathy with gangrene; I96 Gangrene, not elsewhere classified; Z68.42 Body mass index [BMI] 45.0-49.9, adult; Z79.82 Long term (current) use of aspirin; Z79.4 Long term (current) use of insulin; Y83.8 Other surgical procedures as the cause of abnormal reaction of the patient, or of later complication, without mention of misadventure at the time of the procedure
CPT/HCPCS: A6222; G0463; A6446

== ENCOUNTER 2018-12-25 09:58 | Outpatient (CLI) | payer MEDICAID ==
[2018-12-25] MEDS ORDERED: LIDOcaine 2% 5ml jelly ONE (10:15)
--- NOTE | 2018-12-25 15:01 | NUR ---
Patient ambulated independently from [facility] and was admitted to outpatient wound care for physician visit with Francois Aj MD. Dressing removed and wound cleansed. Patient assessed for changes in conditions, medications and medical history. Dr. Aj at bedside accompanied by RN. Wound assessed and no debridement was done. Plan of care discussed with patient. Dressings placed per MD orders. Patient instructed on the signs and symptoms of infection and to call the Wound Center if any occur or to go to the ED if we are closed: Increased pain in wound Increase in drainage from the wound Redness in the skin surrounding the wound Bleeding from the wound Temperature of 101 or greater Patient instructed that elevated blood sugars delay healing of the wound and can cause further complications including but not limited to amputation of toes or feet. Patient instructed that the weight of their body puts a large amount of pressure on their wounds. This pressure keeps the new tissue from growing and inhibits new blood vessels from forming. Explained that, if they continue to bear weight on a body part that has a wound, the time it takes to heal the wound increases, the wound may get worse or the wound may not heal at all. Patient verbalized understanding of all discharge instructions and plan of care and ambulated independently out to [facility] in stable condition with no sign or symptom of distress at time of discharge. Addendum: 12/25/18 at 1504 by Yun Witt RN Amended: Links added.
== END 2018-12-25 11:24 | disposition home or self-care (01) ==
LOC: WOUND CARE 09:58 → EDSTATUS 10:00 → WOUND CARE 11:24
PROVIDERS: ATTEND Surgery
DX: T81.89XD Other complications of procedures, not elsewhere classified, subsequent encounter (principal); E11.621 Type 2 diabetes mellitus with foot ulcer; L97.522 Non-pressure chronic ulcer of other part of left foot with fat layer exposed; E11.65 Type 2 diabetes mellitus with hyperglycemia; E11.40 Type 2 diabetes mellitus with diabetic neuropathy, unspecified; E11.69 Type 2 diabetes mellitus with other specified complication; M86.8X8 Other osteomyelitis, other site; E11.52 Type 2 diabetes mellitus with diabetic peripheral angiopathy with gangrene; I96 Gangrene, not elsewhere classified; Z68.42 Body mass index [BMI] 45.0-49.9, adult; Z79.82 Long term (current) use of aspirin; Z79.4 Long term (current) use of insulin; Y83.8 Other surgical procedures as the cause of abnormal reaction of the patient, or of later complication, without mention of misadventure at the time of the procedure
CPT/HCPCS: 36416; 82948; G0463; A6212

== ENCOUNTER 2019-01-08 09:47 | Day surgery (SDC) | payer MEDICAID ==
--- NOTE | 2019-01-08 14:15 | NUR ---
Patient ambulated independently from [facility] and was admitted to outpatient wound care for physician visit with Francois Aj MD. Dressing removed, wound cleansed and lidocaine applied per order. Patient assessed for changes in conditions, medications and medical history. Dr. Aj at bedside accompanied by RN. Wound assessed, time out performed by MD/RN. Wound debrided as detailed in the physician progress/procedure note. Plan of care discussed with patient. Dressings placed per MD orders. Patient instructed on the signs and symptoms of infection and to call the Wound Center if any occur or to go to the ED if we are closed: Increased pain in wound Increase in drainage from the wound Redness in the skin surrounding the wound Bleeding from the wound Temperature of 101 or greater Patient instructed that elevated blood sugars delay healing of the wound and can cause further complications including but not limited to amputation of toes or feet. Patient instructed that the weight of their body puts a large amount of pressure on their wounds. This pressure keeps the new tissue from growing and inhibits new blood vessels from forming. Explained that, if they continue to bear weight on a body part that has a wound, the time it takes to heal the wound increases, the wound may get worse or the wound may not heal at all. Patient verbalized understanding of all discharge instructions and plan of care and ambulated independently out to [facility] in stable condition with no sign or symptom of distress at time of discharge. Addendum: 01/08/19 at 1416 by Yun Witt RN Amended: Links added.
== END 2019-01-08 11:04 | disposition home or self-care (01) ==
LOC: WOUND CARE 09:47
PROVIDERS: ATTEND Surgery
DX: T81.89XD Other complications of procedures, not elsewhere classified, subsequent encounter (principal); E11.621 Type 2 diabetes mellitus with foot ulcer; L97.522 Non-pressure chronic ulcer of other part of left foot with fat layer exposed; E11.65 Type 2 diabetes mellitus with hyperglycemia; E11.40 Type 2 diabetes mellitus with diabetic neuropathy, unspecified; E11.69 Type 2 diabetes mellitus with other specified complication; M86.8X8 Other osteomyelitis, other site; E11.52 Type 2 diabetes mellitus with diabetic peripheral angiopathy with gangrene; I96 Gangrene, not elsewhere classified; Z68.42 Body mass index [BMI] 45.0-49.9, adult; Z79.82 Long term (current) use of aspirin; Z79.4 Long term (current) use of insulin; Y83.8 Other surgical procedures as the cause of abnormal reaction of the patient, or of later complication, without mention of misadventure at the time of the procedure
CPT/HCPCS: 36416; 82948; 97597; A6021; A6206; A6212

== ENCOUNTER → 2024-05-08 | Outpatient (CLI) | payer MEDICAID | END | disposition home or self-care (01) | LOC: RAD 10:42 | PROVIDERS: ATTEND Family Medicine | DX: M79.89 Other specified soft tissue disorders (principal); L97.412 Non-pressure chronic ulcer of right heel and midfoot with fat layer exposed; Z98.890 Other specified postprocedural states | CPT/HCPCS: 73630 ==

== ENCOUNTER 2025-06-15 06:44 | Day surgery (SDC) | payer MEDICAID ==
[2025-06-08 10:04] LABS: MEAN PLATELET VOLUME 9.6 FL (7.4-10.4); PRE OP HEMATOCRIT 43.1 % (42.0-52.0); PRE OP HEMOGLOBIN 14.6 g/dL (14.0-17.9); PRE OP PLATELET COUNT 242 X10'3 (140-440); PRE OP WHITE BLOOD COUNT 12.6 10'3 (4.8-10.8); RED CELL DISTRIBUTION WIDTH 14.2 % (11.5-14.5)
[2025-06-08 10:11] LABS: CREATININE 1.15 MG/DL (0.60-1.10); PRE OP ALT 51 U/L (30-65); PRE OP ANION GAP 13 (8-16); PRE OP AST 25 U/L (10-37); PRE OP BILIRUB, TOTAL 0.5 MG/DL (0.0-1.0); PRE OP GLUCOSE 171 MG/DL (70-104); PRE OP POTASSIUM 4.1 MMOL/L (3.4-5.1); PRE OP SODIUM 136 MMOL/L (135-145); TOTAL CARBON DIOXIDE 19.3 MMOL/L (24-32); eGFR 71 ML/MIN
--- NOTE | 2025-06-08 10:22 | ELECTROCARDIOGRAPH REPORT ---
[facility] Test Date: 2025-06-08 Test Time: 10:17:50 Pat Name: MAILE CHAVEZ Department: [facility]-PRE-OP Patient ID: [id number] Room: Gender: M Banquet Waiter/Waitress: : 1985 Requested By: JOSE MANUEL VAN Order Number: [id number] Reading MD: Dr. TODD Rivera Measurements Intervals [place] Rate: 107 P: 79 DE: 152 QRS: 82 QRSD: 91 T: 42 QT: 334 QTc: 446 Interpretive Statements Sinus tachycardia Ventricular bigeminy Electronically Signed On 06-08-2025 17:11:[address] TODD Rivera Please click the below link to view image of tracing.
[2025-06-08 11:01] LABS: LEUKOCYTE ESTERASE ,URINE NEGATIVE (Neg); NITRITES, URINE NEGATIVE (Neg); OCCULT BLOOD,URINE NEGATIVE (Neg)
[2025-06-08 11:11] LABS: UA COLLECTION TYPE NON-SPECIFIED
[2025-06-08 11:14] LABS: SQUAMOUS EPITHELIAL CELL,UR MANY /LPF (FEW)
[2025-06-08 11:17] LABS: COARSE GRANULAR CAST 0-3 /LPF (NEGATIVE)
[2025-06-08 11:19] LABS: HYALINE CASTS 0-3 /LPF (NEGATIVE)
[2025-06-15] VITALS (16 sets, daily range): BP systolic 104–154; BP diastolic 68–101; PULSE 84–97; RESP 14–20; TEMP 97.6; O2SAT 93–99
[~2025-06-15] VITALS: Ht 170.2 cm; Wt 129.7 kg
[2025-06-15] MEDS: DOCUMENT DATE & TIME OF BETA-BLOCKER PO ONE (05:30)
[2025-06-15] MEDS: Cefazolin 3 GM/100ML NS IVPB 100 ML IV ONE (05:30)
[~2025-06-15 06:44] MED LIST changes: +ALOG25TA2 PO; +ATOR-429 PO; -BLOO-384 METER; +CHOL100017 PO; +INSU100I31 SQ; -INSU100V11 SQ; -LANTUS SQ; +METF-900 PO; +METO-395 PO; +TIRZ7.5P SUBCUT
[2025-06-15] MEDS ORDERED: BUPIVAcaine 2.5mg/ml inj 50ml vial (contains preservative) ONE (06:55)
[2025-06-15] MEDS ORDERED: bacitracin 15gm ointment TP ONE (06:56)
[2025-06-15] MEDS: ringers solution, lacted 1,000 ML IV SCH (07:32)
[2025-06-15] MEDS ORDERED: midazolam 1 mg/ML 2ml injection ONE (08:15)
[2025-06-15] MEDS ORDERED: dexamethasone sod phosphate 4mg/ml inj. ONE (08:37)
[2025-06-15] MEDS ORDERED: fentaNYL/PF 50MCG/1 ML 2ML syringe ONE (08:37)
[2025-06-15] MEDS ORDERED: ROPIVAcaine 0.5% (5mg/ml) 30ml vial ONE ×2 (08:37)
[2025-06-15] MEDS ORDERED: propofol inj 20 ML IV ONE (08:37)
[2025-06-15] MEDS ORDERED: acetaminophen 1,000mg/100ml IV 100 ML IV ONE (08:47)
[2025-06-15] MEDS ORDERED: ondansetron/PF 4mg/2ml inj ONE (09:00)
[2025-06-15] MEDS ORDERED: hydrALAZINE 20mg/ml inj. IV PRN (09:10)
[2025-06-15] MEDS ORDERED: labetalol 20mg/4ml (5mg/ml) syringe IV PRN (09:10)
[2025-06-15] MEDS ORDERED: ondansetron/PF 4mg/2ml inj IV PRN (09:10)
[2025-06-15] MEDS ORDERED: morphine 4 MG/ML inj SYRINge IV PRN (09:10)
[2025-06-15] MEDS ORDERED: fentaNYL/PF 50MCG/1 ML 2ML syringe IV PRN ×2 (09:10)
--- NOTE | 2025-06-15 09:20 | ANESTHESIA RECORDS ---
Nerve Block Providers to CC CC: JOSE MANUEL VAN DPM ~ Diagnosis: Nerve Block requested by: JOSE MANUEL VAN DPM Neuraxial/Peripheral Nerve Block requested for Post-operative analgesia by Physician above DIAGNOSIS: Post-operative pain. (Body Area) Shoulder: [ ] Arm: [ ] Hand: [ ] Hip: [ ] Knee: [ ] Ankle: [ ] Foot: [ Right ] Leg: [ ] Abdomen: [ ] Other: [ ] Post-operative pain expected to be/is inadequately managed by oral or IV medicines. Regional anesthetic expected to facilitate rehabilitation and/or discharge from facility. Other:[ _] Procedure Performed: Sciatic Classis: Right Femoral / Saphenous: Right Time out Done?: Yes Time of Time out: 08:15 Procedure Details: PROCEDURE DETAILS: Risks, benefits and alternatives explained Informed consent obtained, and patient wishes to proceed Conscious sedation with indicated monitors Patient positioned, pertinent anatomy defined, sterile technique used Needle used: [ ] 3 1/8 inch Stimuplex Ultra 22ga [ ] 4 inch Stimuplex Ultra 20ga [ X] 6 inch Stimuplex Ultra 20ga [ ] 6 inch, Quikbloc over the needle catheter set 20ga [ ] 4 inch Quikbloc over the needle catheter set 20ga [ ]Other: [ ] Loss of twitch @ [_0.5 ]mA [X ] Single Injection [ ] Catheter Ultrasound Guidance Used: [X ] Yes [ ] No Attempts:[___1,1 ] Medicines injected: [ ]Clonidine Amt:[ ] [ ]Dexamethasone Amt:[ ] [ X ]Ropivacaine Amt:[0.5% 60 c.c ] [ ]Bupivacaine Amt:[ ] [ ]Lidocaine Amt:[ ] [ ]Exparel 1.33%:[ ] [ ]Epinephrine Amt[ ] [ ]Other: [ ] Intermittent aspiration during local anesthetic administration No symptoms of intraneural or intravenous injection Patient tolerated procedure well Comments Right posterior thigh is examined with ultrasound and popliteal vess els,sciatice nerve bundle are identified. Needle is near the bundle,upon stimulation foort contractions noted. 35 c.c local mix is injected. Rt adductor canal bloack: Rt medial thigh is examined with Ultrasound and adductor canal and vessels in the canal are idnetified. Needle in the anal.25 c.c loal mix is injected. Ultraound images inthe chart. RYLAND DANG MD Jun 15, 2025 09:20
--- NOTE | 2025-06-15 16:44 | OPERATIVE REPORT ---
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 PROCEDURES: * Tendo-Achilles lengthening. * Posterior tibial tendon lengthening. * Plantar midfoot exostectomy. All on the right foot and ankle. SURGEON: Jose F Clark DPM GENERAL CAR SUPERVISOR YARD: Davin Hook DPM, fellow. Assistance was needed to decrease tourniquet time, help with efficiency and retraction throughout the entirety of the procedure. ANESTHESIA: General anesthesia. HEMOSTASIS: Thigh tourniquet at 300 mmHg. FINDINGS: None. COMPLICATIONS: None. SPECIMENS: None. ESTIMATED BLOOD LOSS: Less than 15-20 mL. HARDWARE: None. INDICATIONS: The patient presented to the office with the above-listed complaints which have been unresponsive to conservative treatment options. Thus, surgical options have been offered along with all potential risks, complications, and surgical outcomes being fully explained to the patient's level of understanding. No guarantees were given. Clinical and radiographic data correlate with the above diagnoses. The patient had undergone a previous TMA procedure, but unfortunately, the patient developed an equinovarus type of deformity. This deformity had gotten worse where he was developing more pain within the plantar lateral aspect of his foot. I did offer some minimally invasive surgery as the patient is not a candidate for full reconstruction due to his other comorbidities. DESCRIPTION OF PROCEDURE: The patient was brought to the operating room and placed on the operating room in the supine position. The patient was then induced under general anesthesia. The patient received a popliteal nerve block. The foot and ankle were prepped and draped in the usual aseptic fashion and the previously applied thigh tourniquet was inflated to 300 mmHg after a timeout was called and preoperative antibiotics were given and dosed appropriately. Tendo-Achilles lengthening: We then brought our attention to the posterior aspect of the patient's Achilles tendon. Due to the equinovarus deformity, we then made a triple hemisection Achilles tendon lengthening procedure with two incisions directed more medial and one lateral. We did this with a #11 blade. After this, we then flexed the patient's ankle and it was noted that there was a large increase in the amount of dorsiflexion. The patient still had an inverted deformity that was created because of the posterior tibial tendon, but after this, we then flushed and closed these incisions with 3-0 nylon. Posterior tibial tendon lengthening: We then brought our attention to the medial aspect of the patient's right foot where a separate incision was then made using a #15 blade. This was right over the posterior tibial tendon. We dissected until we reached the posterior tibial tendon using similar dissection techniques in order to care for all vital neurovascular structures. After this, we then identified the posterior tibial tendon, which was carefully lengthened using a #15 blade. After this, the patient's inversion type of deformity was drastically improved, but he still had a large amount of plantar prominence that was noted. Plantar midfoot exostectomy: After this, we then brought our attention to the lateral aspect of the patient's plantar, lateral, distal midfoot. We then made a separate incision using a #15 blade. This was approximately 3-4 cm in length and we carefully dissected down to the level of bone. We then used a sagittal saw in order to remove the hypertrophic eminence of the plantar aspect. All rough edges were then smoothed using a rongeur as well as a hand rasp. Intraoperative fluoroscopic imaging confirmed that we were removing the appropriate amount of bone. We then replaced the patient's skin edges and it was noted that there was no prominence noted, so therefore, we completed our procedure and we flushed with copious amounts of sterile normal saline. All the incisions were then closed with 3-0 Vicryl, followed by 3-0 nylon and then they were dressed with triple antibiotic ointment, followed by Adaptic, 4 x 4's, and a Webril. The patient was then placed into a CAM boot. The patient was taken out of general anesthesia and placed into PACU with vital signs stable and vascular status intact to the operative foot. POSTOPERATIVE PLAN: The patient is going to be partially restricted weightbearing for transfers on the operative foot and is instructed to follow up with me in approximately 1-2 weeks after surgery. The entire case was performed in a teaching fashion and I was available pre and postoperatively to answer any questions from the patient and his family. ROQUE CARTAGENA DPM TID: [id number] RECEIPT: [id number] JAMES/NGHIA/LAURIE
== END 2025-06-15 11:51 | disposition home or self-care (01) ==
LOC: PAS 06:44
PROVIDERS: ATTEND Podiatrist Foot & Ankle Surgery
DX: M21.541 Acquired clubfoot, right foot (principal); M25.371 Other instability, right ankle; M21.6X1 Other acquired deformities of right foot; F32.A Depression, unspecified; E11.21 Type 2 diabetes mellitus with diabetic nephropathy; I10 Essential (primary) hypertension; J44.9 Chronic obstructive pulmonary disease, unspecified; E11.9 Type 2 diabetes mellitus without complications; E66.01 Morbid (severe) obesity due to excess calories; Z79.899 Other long term (current) drug therapy; Z91.013 Allergy to seafood; G89.18 Other acute postprocedural pain; Z98.890 Other specified postprocedural states; Z79.82 Long term (current) use of aspirin; Z68.42 Body mass index [BMI] 45.0-49.9, adult
CPT/HCPCS: 27686; 28122; 36415; 64445; 64447; 73620; 80053; 81001; 82948; 85025; 93005; A6222; J0131; J1100; J2250; J2405; J2704; J2795; J3010; J7030; J7120; Z7506; Z7508; Z7512; 76000; A4215; A4618; A6253; A6449; A7000; J0690; J3490